=== PATIENT | female | born 1940 | race Caucasian/White ===

== ENCOUNTER 2024-03-13 15:58 | Outpatient (OUT) | payer MEDICARE, SELFPAY | END 2024-03-13 15:59 | disposition home or self-care (01) | LOC: WC 15:59 | PROVIDERS: PCP Physician Assistant; Visit Provider Physician Assistant | DX: L97.918 Non-pressure chronic ulcer of unspecified part of right lower leg with other specified severity (principal) | CPT/HCPCS: G0463 ==

== ENCOUNTER 2024-03-20 13:00 | Outpatient (OUT) | payer MEDICARE, SELFPAY | END 2024-03-20 13:01 | disposition home or self-care (01) | LOC: WC 15:36 | PROVIDERS: PCP Physician Assistant; Visit Provider Physician Assistant | DX: L97.918 Non-pressure chronic ulcer of unspecified part of right lower leg with other specified severity (principal) | CPT/HCPCS: G0463 ==

== ENCOUNTER 2024-03-27 16:04 | Outpatient (OUT) | payer MEDICARE, SELFPAY | END 2024-03-27 16:05 | disposition home or self-care (01) | LOC: WC 16:04 | PROVIDERS: PCP Physician Assistant; Visit Provider Physician Assistant | DX: L97.918 Non-pressure chronic ulcer of unspecified part of right lower leg with other specified severity (principal) | CPT/HCPCS: G0463 ==

== ENCOUNTER 2024-05-04 10:49 | Outpatient (OUT) | payer MEDICARE, SELFPAY ==
--- NOTE | 2024-05-04 | XR_ITS ---
The [address] [address] Patient Name: SERGIO ACOSTA MRN: [id number] date: 1940 Sex: F Assigned Patient Location: Current Patient Location: Accession/Order Number: [id number] Exam Date: 05/04/2024 10:51 Report Date: 05/08/2024 13:21 At the request of: KATHERINE TORRES Procedure: XR foot LT min 3V PROCEDURE: XR foot LT min 3V, XR ankle LT min 3V COMPARISON: None. HISTORY: LEFT FOOT PAIN FINDINGS: BONES:No acute fracture or dislocation of the foot or ankle. Minimal enthesopathic spurring of the calcaneus. Mild degenerative change with marginal osteophyte formation SOFT TISSUES:Negative. No visible soft tissue swelling. EFFUSION:None visible. OTHER: Negative. XR/XR foot LT min 3V IMPRESSION: Mild degenerative changes Electronically authenticated by: KATHRINE PHILIP Date: 05/08/2024 13:21
--- NOTE | 2024-05-04 | XR_ITS ---
The [address] [address] Patient Name: SERGIO ACOSTA MRN: [id number] date: 1940 Sex: F Assigned Patient Location: Current Patient Location: Accession/Order Number: [id number] Exam Date: 05/04/2024 10:51 Report Date: 05/08/2024 13:21 At the request of: KATHERINE TORRES Procedure: XR ankle LT min 3V PROCEDURE: XR foot LT min 3V, XR ankle LT min 3V COMPARISON: None. HISTORY: LEFT FOOT PAIN FINDINGS: BONES:No acute fracture or dislocation of the foot or ankle. Minimal enthesopathic spurring of the calcaneus. Mild degenerative change with marginal osteophyte formation SOFT TISSUES:Negative. No visible soft tissue swelling. EFFUSION:None visible. OTHER: Negative. XR/XR ankle LT min 3V IMPRESSION: Mild degenerative changes Electronically authenticated by: KATHRINE PHILIP Date: 05/08/2024 13:21
--- OUTSIDE RECORDS SUMMARY | 2024-05-04 10:53 | XMS_ITS | CCD ---
Author Organization [facility] Care Team Providers Care Park Superintendent Name Role Phone Roz Stewart Unavailable Unavailable Provider, None Unavailable Unavailable Roz Stewart Unavailable Unavailable IsabelJairon santizo Unavailable Unavail able Isabel, Jairon Sr Unavailable Unavail able Provider, None Unavailable Unavailable Domingo Badillo Unavailable Unavailable Isabel, Jairon Sr Unavailable Unavail able IsabelJairon Unavailable Unavail able Provider, None Unavailable Unavailable Provider, None Unavailable Unavailable Stalter, Jorge Unavailable Unavailable Stalter, Jorge Unavailable Unavailable Agusto Anderson Primary Care Provider Allergies Allergy Classification Reported Allergen(s) Allergy Type Date of Onset Reaction(s) Facility (1 source) No Known Medication Allergies; Translations: [No Known Medication Allergies] Propensity to adverse reactions to drug (disorder) [facility] Repository Medications Completed/Discontinued Medications Medication Drug Class(es) Dates Sig (Normalized) Sig (Original) acetaminophen 325 mg oral capsule (1 source) acetaminophen (TYLENOL) 325 mg cap Take by mouth as needed. 0 Active Comment on above: Take by mouth as nee ded. acetaminophen 325 mg / HYDROcodone bitartrate 5 mg oral tablet (1 source) Opioid Agonist Start: 08-27-2016 take 1 tablet by mouth every six hours as needed HYDROcodone-acetami nophen (NORCO) 5-325 mg per tablet Take 1 tablet by mouth every 6 hours as needed. 30 tablet 0 08/27/2016 Active Comment on above: Take 1 tablet by rpetty th every 6 hours as needed. acetaminophen 325 mg / oxyCODONE hydrochloride 5 mg oral tablet (1 source) Opioid Agonist Start: 08-14-2016 take 1 tablet by mouth every six hours as needed oxyCODONE-acetamino phen (PERCOCET) 5-325 mg tablet Take 1 tablet by mouth every 6 hours as needed for Pain. 15 tablet 0 08/14/2016 Active Comment on above: Take 1 tablet by pretty th every 6 hours as needed for Pain. aspirin 81 mg delayed release oral tablet (1 source) Platelet Aggregation Inhibitor, Nonsteroidal Anti-inflammatory Drug take 1 tablet by mouth once daily aspirin, enteric coated (ASPIRIN LOW DOSE) 81 mg EC tablet Take 81 mg by mouth once daily. 0 Active Comment on above: Take 81 mg by mouth once daily. atropine sulfate 0.025 mg / diphenoxylate hydrochloride 2.5 mg oral tablet (1 source) Anticholinergic, Cholinergic Muscarinic Antagonist, Antidiarrheal Start: 11-24-2016 take 1 tablet by mouth once at bedtime diphenoxylate-atrop ine (LOMOTIL) 2.5-0.025 mg per tablet Take 1 tablet by mouth before meals and at bedtime. 120 tablet 2 11/24/2016 Active Comment on above: Take 1 tablet by pretty th before meals and at bedtime. CALCIUM CITRATE/VITAMIN D3 (CITRACAL + D ORAL) (1 source) CALCIUM CITRATE/VITAMIN D3 (CITRACAL + D ORAL) Take by mouth. 0 Active Comment on above: Take by mouth. cholecalciferol, vitamin D3, (VITAMIN D3 ORAL) (1 source) take 500 mg by mouth once daily cholecalciferol, vitamin D3, (VITAMIN D3 ORAL) Take 500 mg by mouth once daily. 0 Active Comment on above: Take 500 mg by mouth once daily. cholestyramine resin 4000 mg powder for oral suspension (2 sources) Bile Acid Sequestrant Start: 11-24-2016 take 4 g by mouth three times daily cholestyramine (QUESTRAN) 4 gram packet Take by mouth as directed. Three times per day 90 Packet 3 11/24/2016 Active Start: 08-03-2016 take 4 g by mouth once daily c holestyramine (QUESTRAN) 4 gram packet Take by mouth once daily. 30 Packet 3 08/03/2016 Active Comment on above: Take by mouth once d aily. Take by mouth as dir ected. Three times per day ibuprofen 200 mg oral tablet (1 source) Nonsteroidal Anti-inflammatory Drug take 1 tablet by mouth every six hours as needed ibuprofen (MOTRIN) 200 mg tablet Take 200 mg by mouth every 6 hours as needed. 0 Active Comment on above: Take 200 mg by mouth every 6 hours as needed. lactobacillus acidophilus [id number] unt oral capsule (1 source) Lactobacillus acidophilus (PROBIOTIC) 10 billion cell cap Take by mouth. 0 Active Comment on above: Take by mouth. loperamide hydrochloride 2 mg oral tablet (1 source) Opioid Agonist take 1 tablet by mouth once as needed, then take 2-6 tablets by mouth once daily as needed Loperamide HCl (IMODIUM A-D) 2 mg tab Take 2 mg by mouth as needed (2-6 a day). 0 Active Comment on above: Take 2 mg by mouth a s needed (2-6 a day). MULTIVIT-MIN/FA/CALCIUM /VIT K1 (ONE-A-DAY WOMEN'S 50+ ORAL) (1 source) MULTIVIT-MIN/FA/ CALCIU M/VIT K1 (ONE-A-DAY WOMEN'S 50+ ORAL) Take by mouth. 0 Active Comment on above: Take by mouth. 12 hr timolol 5 mg/ml ophthalmic solution (1 source) beta-Adrenergic Saida take 1 drop(s) into the eye(s) once daily timolol hemihydrate (BETIMOL) 0.5 % ophthalmic solution Use 1 Drop in both eyes once daily. 0 Active Comment on above: Use 1 Drop in both e yes once daily. Results Test Name Value Interpretation Reference Range [facility] ([id number]) 1940 F Date Time Provider Department 05/15/22 JOSE RAUL ROBERTO During your visit today, we recorded the following information about you: Chandu Rosen RN 05/15/2022 2:12 PM Signed SPECIALTY CARE COORDINATION FOLLOW-UP NOTE Unable to reach Sergio. Left a voice message to call the office back [phone] or call [phone] to make an appointment with Rema Silvestre NP as an office visit to discuss the sacral nerve stimulator. 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 - acetaminophen (TYLENOL) 325 mg cap Take by mouth as needed. - ibuprofen (MOTRIN) 200 mg tablet Take 200 mg by mouth every 6 hours as needed. - timolol hemihydrate (BETIMOL) 0.5 % ophthalmic solution Use 1 Drop in both eyes once daily. - diphenoxylate-atropine (LOMOTIL) 2.5-0.025 mg per tablet Take 1 tablet by mouth before meals and at bedtime. - cholestyramine (QUESTRAN) 4 gram packet Take by mouth as directed. Three times per day - HYDROcodone-acetaminophen (NORCO) 5-325 mg per tablet Take 1 tablet by mouth every 6 hours as needed. - oxyCODONE-acetaminophen (PERCOCET) 5-325 mg tablet Take 1 tablet by mouth every 6 hours as needed for Pain. - cholestyramine (QUESTRAN) 4 gram packet Take by mouth once daily. - CALCIUM CITRATE/VITAMIN D3 (CITRACAL + D ORAL) Take by mouth. - MULTIVIT-MIN/FA/CALCIUM/VIT K1 (ONE-A-DAY WOMEN'S 50+ ORAL) Take by mouth. - aspirin, enteric coated (ASPIRIN LOW DOSE) 81 mg EC tablet Take 81 mg by mouth once daily. - Lactobacillus acidophilus (PROBIOTIC) 10 billion cell cap Take by mouth. - Loperamide HCl (IMODIUM A-D) 2 mg tab Take 2 mg by mouth as needed (2-6 a day). Meds Comments as of 06/11/2016: Pt states that medication is current. Problem List As Of Date: 05/15/2022 (None) Encounter Status:Closed by CHANDU ROSEN on 05/15/22 [facility] CNOVon 06-19-2021 CNOV Office Visit (CORSMN ) SERGIO ALLEN ([id number]) 1940 F Date Time Provider Department 06/19/21 2:30 PM KETAN OBANDO During your visit today, we recorded the following information about you: Weight Height 66.6 kg 1.803 m Ketan Obando APRN.HEEL CURVER 06/19/2021 3:17 PM Signed [facility]LOOR SNS Follow Up Date of SNS implant: Surgeon: Claudette Dumont MD History of present illness: Sergio Allen is a 81 year old FEMALE with a history of having implantation of an Interstim device for treatment of fecal incontinence. S/p implantation of sacral neuromodulator on 08/27/[address] Dumont Patient states she has been doing well with incontinence management until recently. Starting in Spring 2020 it started to worsen and she is not sure why or what precipitated it. The incontinence occurs infrequently still but she is very mindful to adhere to her bowel regimen. She takes cholestyramine daily. She feels her urge to defecation is lessened and does not have enough warning, worsening her incontinence She feels the stimulation from SNS vaginally and is very uncomfortable. She has some difficulty managing settings independently. She has tried to change the programming but still feels stimulation vaginally and is concerned the lead may be displaced. She states she has fallen in the past few years, unsure if there has been direct trauma to the device. PAST MEDICAL HISTORY Diagnosis Date - Breast cancer (HCC) chemo - Depression - Skin cancer - TIA (transient ischemic attack) PAST SURGICAL HISTORY Procedure Laterality Date - CHOLECYSTECTOMY - PAST SURGICAL HISTORY OF right mastectomy - PAST SURGICAL HISTORY OF spinal surgery - PAST SURGICAL HISTORY OF 1967 rectal wall repair after childbirth - PAST SURGICAL HISTORY OF bunionectomy - PAST SURGICAL HISTORY OF dilation of esophagus - TONSILLECTOMY AND ADENOIDECTOMY HX Current Outpatient Medications Medication Sig Dispense Refill - cholecalciferol, vitamin D3, (VITAMIN D3 ORAL) Take 500 mg by mouth once daily. - acetaminophen (TYLENOL) 325 mg cap Take by mouth as needed. - ibuprofen (MOTRIN) 200 mg tablet Take 200 mg by mouth every 6 hours as needed. - timolol hemihydrate (BETIMOL) 0.5 % ophthalmic solution Use 1 Drop in both eyes once daily. - cholestyramine (QUESTRAN) 4 gram packet Take by mouth as directed. Three times per day 90 Packet 3 - aspirin, enteric coated (ASPIRIN LOW DOSE) 81 mg EC tablet Take 81 mg by mouth once daily. - Lactobacillus acidophilus (PROBIOTIC) 10 billion cell cap Take by mouth. - diphenoxylate-atropine (LOMOTIL) 2.5-0.025 mg per tablet Take 1 tablet by mouth before meals and at bedtime. 120 tablet 2 - HYDROcodone-acetaminophen (NORCO) 5-325 mg per tablet Take 1 tablet by mouth every 6 hours as needed. (Patient not taking: Reported on 06/19/2021) 30 tablet 0 - oxyCODONE-acetaminophen (PERCOCET) 5-325 mg tablet Take 1 tablet by mouth every 6 hours as needed for Pain. (Patient not taking: Reported on 06/19/2021) 15 tablet 0 - cholestyramine (QUESTRAN) 4 gram packet Take by mouth once daily. 30 Packet 3 - CALCIUM CITRATE/VITAMIN D3 (CITRACAL + D ORAL) Take by mouth. (Patient not taking: Reported on 06/19/2021 ) - MULTIVIT-MIN/FA/CALCIUM/VIT K1 (ONE-A-DAY WOMEN'S 50+ ORAL) Take by mouth. (Patient not taking: Reported on 06/19/2021 ) - Loperamide HCl (IMODIUM A-D) 2 mg tab Take 2 mg by mouth as needed (2-6 a day). (Patient not taking: Reported on 06/19/2021 ) No current facility-administered medications for this visit. ALLERGIES No Known Allergies FAMILY HISTORY Problem Relation Age of Onset - other (multiple myeloma [Other]) Sister - other (kidney cancer [Other]) Daughter Social History Tobacco Use - Smoking status: Never Smoker - Smokeless tobacco: Never Used Vaping Use - Vaping Use: Never used Substance Use Topics - Alcohol use: Yes Comment: 3 drinks a night - Drug use: Never Review of Systems: Reviewed, negative other than as stated in HPI. Physical Exam: 06/19/21 1425 Weight: 66.6 kg (146 lb 12.8 oz) Height: 180.3 cm (5' 11 ) General Appearance: Well appearing, alert, in no acute distress, well-hydrated, well nourished. Psych: ORIENTATION: normal to time place, person and situation AFFECT AND MOOD: Normal Skin: Skin color, texture, turgor normal, no suspicious rashes or lesions Extremities: No deformities, edema, skin discoloration, clubbing or cyanosis. Good capillary refill. Musculoskeletal: no weakness, no balance deficits, no coordination deficitsGAIT: Normal ASSIST DEVICE: None Neuro: normal memory Normal mood and affect. SNS Device: battery located right lumbar region, nontender, no erythema Sacral Nerve Stimulation Settings AND Programming: Program Settings Voltage / Sensation 1 0-,3+ felt vaginally, right sided, u (more content not included)... Normal [facility] HISTORY PHYSICALon HISTORY PHYSICAL HNO ID: [id number] Author: Ketan Obando APRN.HEEL CURVER Service: ? Author Type: Nurse Practitioner Type: HANDP Filed: 06/19/2021 3:17 PM Note Text: [facility]LO[facility] SNS Follow Up Date of SNS implant: Surgeon: Claudette Dumont MD History of present illness: Sergio Allen is a 81 year old FEMALE with a history of having implantation of an Interstim device for treatment of fecal incontinence. S/p implantation of sacral neuromodulator on 08/27/[address] Dumont Patient states she has been doing well with incontinence management until recently. Starting in Spring 2020 it started to worsen and she is not sure why or what precipitated it. The incontinence occurs infrequently still but she is very mindful to adhere to her bowel regimen. She takes cholestyramine daily. She feels her urge to defecation is lessened and does not have enough warning, worsening her incontinence She feels the stimulation from SNS vaginally and is very uncomfortable. She has some difficulty managing settings independently. She has tried to change the programming but still feels stimulation vaginally and is concerned the lead may be displaced. She states she has fallen in the past few years, unsure if there has been direct trauma to the device. PAST MEDICAL HISTORY Diagnosis Date - Breast cancer (HCC) chemo - Depression - Skin cancer - TIA (transient ischemic attack) PAST SURGICAL HISTORY Procedure Laterality Date - CHOLECYSTECTOMY - PAST SURGICAL HISTORY OF right mastectomy - PAST SURGICAL HISTORY OF spinal surgery - PAST SURGICAL HISTORY OF 1967 rectal wall repair after childbirth - PAST SURGICAL HISTORY OF bunionectomy - PAST SURGICAL HISTORY OF dilation of esophagus - TONSILLECTOMY AND ADENOIDECTOMY HX Current Outpatient Medications Medication Sig Dispense Refill - cholecalciferol, vitamin D3, (VITAMIN D3 ORAL) Take 500 mg by mouth once daily. - acetaminophen (TYLENOL) 325 mg cap Take by mouth as needed. - ibuprofen (MOTRIN) 200 mg tablet Take 200 mg by mouth every 6 hours as needed. - timolol hemihydrate (BETIMOL) 0.5 % ophthalmic solution Use 1 Drop in both eyes once daily. - cholestyramine (QUESTRAN) 4 gram packet Take by mouth as directed. Three times per day 90 Packet 3 - aspirin, enteric coated (ASPIRIN LOW DOSE) 81 mg EC tablet Take 81 mg by mouth once daily. - Lactobacillus acidophilus (PROBIOTIC) 10 billion cell cap Take by mouth. - diphenoxylate-atropine (LOMOTIL) 2.5-0.025 mg per tablet Take 1 tablet by mouth before meals and at bedtime. 120 tablet 2 - HYDROcodone-acetaminophen (NORCO) 5-325 mg per tablet Take 1 tablet by mouth every 6 hours as needed. (Patient not taking: Reported on 06/19/2021) 30 tablet 0 - oxyCODONE-acetaminophen (PERCOCET) 5-325 mg tablet Take 1 tablet by mouth every 6 hours as needed for Pain. (Patient not taking: Reported on 06/19/2021) 15 tablet 0 - cholestyramine (QUESTRAN) 4 gram packet Take by mouth once daily. 30 Packet 3 - CALCIUM CITRATE/VITAMIN D3 (CITRACAL + D ORAL) Take by mouth. (Patient not taking: Reported on 06/19/2021 ) - MULTIVIT-MIN/FA/CALCIUM/VIT K1 (ONE-A-DAY WOMEN'S 50+ ORAL) Take by mouth. (Patient not taking: Reported on 06/19/2021 ) - Loperamide HCl (IMODIUM A-D) 2 mg tab Take 2 mg by mouth as needed (2-6 a day). (Patient not taking: Reported on 06/19/2021 ) No current facility-administered medications for this visit. ALLERGIES No Known Allergies FAMILY HISTORY Problem Relation Age of Onset - other (multiple myeloma [Other]) Sister - other (kidney cancer [Other]) Daughter Social History Tobacco Use - Smoking status: Never Smoker - Smokeless tobacco: Never Used Vaping Use - Vaping Use: Never used Substance Use Topics - Alcohol use: Yes Comment: 3 drinks a night - Drug use: Never Review of Systems: Reviewed, negative other than as stated in HPI. Physical Exam: 06/19/21 1425 Weight: 66.6 kg (146 lb 12.8 oz) Height: 180.3 cm (5' 11 ) General Appearance: Well appearing, alert, in no acute distress, well-hydrated, well nourished. Psych: ORIENTATION: normal to time place, person and situation AFFECT AND MOOD: Normal Skin: Skin color, texture, turgor normal, no suspicious rashes or lesions Extremities: No deformities, edema, skin discoloration, clubbing or cyanosis. Good capillary refill. Musculoskeletal: no weakness, no balance deficits, no coordination deficitsGAIT: Normal ASSIST DEVICE: None Neuro: normal memory Normal mood and affect. SNS Device: battery located right lumbar region, nontender, no erythema Sacral Nerve Stimulation Settings AND Programming: Program Settings Voltage / Sensation 1 0-,3+ felt vaginally, right sided, uncomfortable at low amplitude 2 1-,3+ 1.5 felt vaginally, uncomfortable even at low amplitude 3 2-,0+ 0.7 felt comfortably in rectum 4 3-,0+ 5 0-,1-,3+ 6 1-,2-,3+ 7 2-,3-,0+ The patient is currently on progra (more content not included)... Normal [facility] History and Physicalon 04-18 History and Physical [id number]-2018 Protein [id number]#1.00[facility] 2017 Intraoperative Note [id number]#1.00[facility] Coding Summaryon 03-25-2018 Coding Summary CODING DATE: 018 [facility] STATUS: Home PAYOR: Medicare APC DESCRIPTION 5023 Level 3 Type A ED Visits ADMIT DX: REASON FOR VISIT DX: G89.18 Other acute postprocedural pain FINAL DX: PRINCIPAL: G89.18 Other acute postprocedural pain SECONDARY: PYMT PROC APC STAT DESCRIPTION DOCTOR NAME DATE NOTE: The code number assigned matches the documented diagnosis and / or procedure in the patient's chart. However, the narrative phrase printed from the coding software may appear abbreviated, or result in slightly different terminology. Coded By: Andres De LaR osa Date Saved: 03/25/2018 04:47 pm [facility] Coding Summary CODING DATE: 018 [facility] STATUS: Home PAYOR: Medicare ADMIT DX: REASON FOR VISIT DX: G89.18 Other acute postprocedural pain FINAL DX: PRINCIPAL: G89.18 Other acute postprocedural pain SECONDARY: PROCEDURES DOCTOR NAME DATE NOTE: The code number assigned matches the documented diagnosis and / or procedure in the patient's chart. However, the narrative phrase printed from the coding software may appear abbreviated, or result in slightly different terminology. Coded By: Andres De La Rosa Date Saved: 03/25/2018 04:47 pm [facility] MAGR Postoperative Recordon 03-22-2018 MAGR Postoperative Record MAGR Phase II Record Summary Primary Physician: Jairon Hall DO Finalized Date/Time: 03/22/18 09:08:52 Pt. Name: SERGIO ALLEN Maryann Kaur./Sex: 1940 FEMALE Med Rec #: [id number] Physician: Jairon Hall DO Financial #: [id number] Pt. Type: D Room/Bed: 220/1 Admit/Disch: 03/18/18 11:41:07 - 03/18/18 18:30:00 Institution: Phase II Case Times MAGR Pre-Care Text: Patient is free from s/s of injury. Patient remains free from compromised physical state related to surgery or anesthesia. Patient comfort maintained. Patient/family verbalize understanding of discharge instructions. Entry 1 In PACU II 03/18/18 16:30:00 Discharge from PACU 03/18/18 18:30:00 II Last Modified By: Sagrario Reyes RN 03/22/18 09:08:45 Post-Care Text: The patient remains free from s/s of injury. Patient's vital signs stable, circulation maintained, return to preop mental and physical status, opsite/dressing intact, minimal or absent nausea and vomiting, tolerates po intake. Patient verbalizes adequate pain control. Patient/family express understanding of discharge instructions. General Comments: care per [address] [place] [address] Finalized By: Sagrario Reyes RN Document Signatures Signed By: Sagrario Reyes RN 03/22/18 09:08 [facility] Consent Formson 03-21-2018 Consent Forms [id number]#[id number] [facility] Progress Note - Nurseon 02-26 Progress Note - Nurse POST OP CALL DONE AND PT C/O ABOVE/SUBJECT. STATES SHE WAS ENC PER ER TO CONTACT DR HALL RE SAME. C/O UNDERSTAND OPIOD CRISIS AND NOTOVER MEDICATING PTS, BUT i WAS IN SEVER PAIN. WHEN ASKED HOW HER PAIN IS TODAY, SHE STATES IM TAKING IBUPROFEN, TRYING NOT TO TAKE PAIN MEDS. STATES SHE IS AWAITING PHONE CALL FROM DR CAMACHO OFFICE TO NOTIFY HIM RE SAT TRIP TO ER. MAGNETIC TAPE TYPEWRITER OPERATOR INFORMED PT IS IN O.R. TODAY HERE, WILLGIVE HIM THE MESSAGE.[Electronically Signed on: 03/21/2018 12:54 EDT] Jeniffer Smith[Verified on: 03/21/2018 12:54 EDT] Jeniffer Smith [facility] ED Clinical Summaryon 2017 ED Clinical Summary [facility] - [facility] [address] [place] [id number] ed Clinical SummaryPERSON INFORMATIONName: SERGIO ALLEN Maryann Age: 78 Years Sex: FEMALEDOB: [birth year] MRN: Acct#:Visit Reason: Rib/trunk pain-swelling; Elbow pain-swelling; POST SURGERY/L ARM PAIN, R KNEE PAIN Arrival: 03/19/18 14:52:00 Discharge: 03/19/18 16:12:00LOS: 000 01:20 Check In: 03/19/18 14:52:00 Checkout:03/19/18 16:12:00Address:[address] [place] [id number]: Provider, NonePROVIDER INFORMATIONProvider Role Assigned UnassignedDEE WILKINS ED PA 03/19/18 14:54:15 03/19/18 14:58:15Jorge Cabrera MD ED Provider 03/19/18 14:54:20Paige Batres DIGITAL PERFORMANCE ANALYST Nurse 03/19/18 15:17:08VITALS INFORMATIONVital Sign Triage LatestTemperature TympanicTemperature Temporal ArteryPulse Rate 86 bpm 86 bpmO2 Sat 99 % 99 %Respiratory Rate 20 br/min 20 br/minBlood Pressure 144 mmHg/96 mmHg 144 mmHg/96 mmHgMEDICAL INFORMATIONMedications Given:Medication Dose RouteHYDROmorphone 1 mg IMketorolac 30 mg IMacetaminophen-oxycodone 1 tab(s) POAllergy Information:No Known Medication AllergiesPHYSICIAN DOCUMENTATIONPatient: SERGIO ALLEN : 78 years Sex: FEMALE : 36Associated Diagnoses: Postoperative pain of extremityAuthor: Jorge Cabrera MDBasic InformationTime seen: Date & time 03/19/18 15:02:00.Left elbow pain, left shoulder pain, right knee pain, left-sided rib painHistory of Present [id number] white female presents to the emergency room complaining of postoperative pain. Patient reports she had open reduction internal fixation of her left elbow yesterday here by Dr. Hall. She reports worsening pain overnight and had initially been taking the Percocet 1 by mouth every 6 hours with minimal relief. She increased the frequency to 1 by mouth every 4 hours and still has considerable pain. Patient reports in the past it has taken a lot of pain medication to control her pain. She called Dr. Lemos, orthopedist relations mgr for Dr. Hall who advised her to come to the emergency room for further evaluation. Patient denies fever or chills, she denies nausea or vomiting. She reports she has trouble sleeping because of the pain. Any movement seems to aggravate the pain. She denies any numbness or tingling in her left hand. She does complain of bruising in her left hand. She is tearful here in the emergency room complaining of extreme pain. Patient also complains of pain in her knee and ribs related to the fall when she fractured her left elbow last week. X-rays of the knee and ribs were negative for any fractures on March 12, 2018Review of SystemsConstitutional symptoms: No fever, no chills.Musculoskeletal symptoms: Muscle pain, Joint pain.Health StatusAllergies:Allergic Reactions (Selected)No Known Medication Allergies.Medications: (Selected)Documented MedicationsDocumentedPercocet 5/325 oral tablet: 1 tab(s), PO, q4hr, PRN: for pain, 0 Refill(s)Probiotic Formula: 1 tab(s), PO, Daily, 0 Refill(s)aspirin 81 mg oral tablet: 81 mg, 1 tab(s), PO, Daily, 30 tab(s), 0 Refill(s)timolol hemihydrate 0.25% ophthalmic solution: 1 drop(s), OPTH, Daily, both eyes, 5 mL, 0 Refill(s).Physical Examination Vital SignsVital Signs03/19/18 14:53 EDT Temperature Oral 36.9 DegC Peripheral Pulse Rate 86 bpm Respiratory Rate 20 br/min Systolic Blood Pressure 144 mmHg HI Diastolic Blood Pressure 96 mmHg HI SpO2 99 % Oxygen Therapy Room air. Per nurse's notes.General: Alert, mild distress.Skin: Warm, dry, pink, Ecchymoses over the dorsum of the patient's left hand.Head: Normocephalic, atraumatic.Eye: Normal conjunctiva.Ears, nose, mouth and throat: Oral mucosa moist.Cardiovascular: Regular rate and rhythm.Respiratory: Respirations are non-labored.Back: Normal range of motion.Musculoskeletal: Patient has full range of motion in her left hand and left wrist. No focal neuromuscular deficits noted, no signs of compartment syndrome., Mild tenderness over the right anterior knee.Neurological: Alert and oriented to person, place, time, and situation, No focal neurological deficit observed, normal sensory observed, normal motor observed, normal speech observed.Psychiatric: Cooperative, appropriate mood & affect.Medical Decision MakingDifferential Diagnosis: Worsening postoperative pain.Rationale: I believe the patient has a high metabolism for pain medications based on her past history. I will give her a shot of Toradol 30 mg intramuscular, 1 mg of hydromorphone intramuscular and one Percocet here in the emergency room and reevaluate her pain..Reexamination/ Reevaluation3:30 PM: Patient's pain markedly improved with intramuscular Toradol, intramuscular Dilaudid and oral Percocet. Patient counseled that she needs to be monitored for respiratory depression since she has increased her dose of Percocet above the recommended daily dose. Patient reports that in the past she has done well with ibuprofen therapy but was advised to discontinue that medication before surgery. Patient is now 24 hours post surgery, I advised her she can restart her ibuprofen and use the Percocet only as needed for breakthrough pain. Patient was counseled that she should call Dr. Hall's office on Wednesday to advise him of this emergency room visitImpression and PlanDiagnosisPostoperative pain of extremity (NNQ43-PT G89.18, Discharge, Medical)PlanCondition: Improved, Stable.Disposition: Discharged: to home.Patient was given the following educational materials: Pain Relief Preoperatively and Postoperatively, Pain Medicine Instructions, Pain Medicine Instructions, Pain Relief Preoperatively and Postoperatively.Follow up with: ; Jairon Hall Within 1 to 2 days.Counseled: Patient, Family, Regarding diagnosis, Regarding diagnostic results, Regarding treatment plan, Regarding prescription, Patient indicated understanding of instructions, Patient and family counseled about use of opiates and the risk for respiratory depression. Patient advised that she should use only the minimal amount of pain medications as necessary to control her pain..DISCHARGE INFORMATION:Discharge Disposition: HomeDischarge Location: HomePATIENT EDUCATION INFORMATIONInstructions: Pain Medicine Instructions; Pain Relief Preoperatively and PostoperativelyFollow-Up:With: Address: When:Jairon Hall [address] [place] [address], [place], [phone] Business (2) Within 1 to 2 daysDIAGNOSIS:Postoperative pain of extremityPatient Understands: Yes - Patient/family/caregiver verbalizes understanding of instructions givenComment: [facility] ED Note - Physician Patient: SERGIO ALLEN : 78 years Sex: FEMALE : [birth year]Associated Diagnoses: Postoperative pain of extremityAuthor: Jorge Cabrera MDBasic InformationTime seen: Date & time 03/19/18 15:02:00.Left elbow pain, left shoulder pain, right knee pain, left-sided rib painHistory of Present [id number] white female presents to the emergency room complaining of postoperative pain. Patient reports she had open reduction internal fixation of her left elbow yesterday here by Dr. Hall. She reports worsening pain overnight and had initially been taking the Percocet 1 by mouth every 6 hours with minimal relief. She increased the frequency to 1 by mouth every 4 hours and still has considerable pain. Patient reports in the past it has taken a lot of pain medication to control her pain. She called Dr. Lemos, orthopedist relations mgr for Dr. Hall who advised her to come to the emergency room for further evaluation. Patient denies fever or chills, she denies nausea or vomiting. She reports she has trouble sleeping because of the pain. Any movement seems to aggravate the pain. She denies any numbness or tingling in her left hand. She does complain of bruising in her left hand. She is tearful here in the emergency room complaining of extreme pain. Patient also complains of pain in her knee and ribs related to the fall when she fractured her left elbow last week. X-rays of the knee and ribs were negative for any fractures on March 12, 2018Review of SystemsConstitutional symptoms: No fever, no chills.Musculoskeletal symptoms: Muscle pain, Joint pain.Health StatusAllergies:Allergic Reactions (Selected)No Known Medication Allergies.Medications: (Selected)Documented MedicationsDocumentedPercocet 5/325 oral tablet: 1 tab(s), PO, q4hr, PRN: for pain, 0 Refill(s)Probiotic Formula: 1 tab(s), PO, Daily, 0 Refill(s)aspirin 81 mg oral tablet: 81 mg, 1 tab(s), PO, Daily, 30 tab(s), 0 Refill(s)timolol hemihydrate 0.25% ophthalmic solution: 1 drop(s), OPTH, Daily, both eyes, 5 mL, 0 Refill(s).Physical Examination Vital SignsVital Signs03/19/18 14:53 EDT Temperature Oral 36.9 DegC Peripheral Pulse Rate 86 bpm Respiratory Rate 20 br/min Systolic Blood Pressure 144 mmHg HI Diastolic Blood Pressure 96 mmHg HI SpO2 99 % Oxygen Therapy Room air. Per nurse's notes.General: Alert, mild distress.Skin: Warm, dry, pink, Ecchymoses over the dorsum of the patient's left hand.Head: Normocephalic, atraumatic.Eye: Normal conjunctiva.Ears, nose, mouth and throat: Oral mucosa moist.Cardiovascular: Regular rate and rhythm.Respiratory: Respirations are non-labored.Back: Normal range of motion.Musculoskeletal: Patient has full range of motion in her left hand and left wrist. No focal neuromuscular deficits noted, no signs of compartment syndrome., Mild tenderness over the right anterior knee.Neurological: Alert and oriented to person, place, time, and situation, No focal neurological deficit observed, normal sensory observed, normal motor observed, normal speech observed.Psychiatric: Cooperative, appropriate mood & affect.Medical Decision MakingDifferential Diagnosis: Worsening postoperative pain.Rationale: I believe the patient has a high metabolism for pain medications based on her past history. I will give her a shot of Toradol 30 mg intramuscular, 1 mg of hydromorphone intramuscular and one Percocet here in the emergency room and reevaluate her pain..Reexamination/ Reevaluation3:30 PM: Patient's pain markedly improved with intramuscular Toradol, intramuscular Dilaudid and oral Percocet. Patient counseled that she needs to be monitored for respiratory depression since she has increased her dose of Percocet above the recommended daily dose. Patient reports that in the past she has done well with ibuprofen therapy but was advised to discontinue that medication before surgery. Patient is now 24 hours post surgery, I advised her she can restart her ibuprofen and use the Percocet only as needed for breakthrough pain. Patient was counseled that she should call Dr. Hall's office on Wednesday to advise him of this emergency room visitImpression and PlanDiagnosisPostoperative pain of extremity (EOD16-RC G89.18, Discharge, Medical)PlanCondition: Improved, Stable.Disposition: Discharged: to home.Patient was given the following educational materials: Pain Relief Preoperatively and Postoperatively, Pain Medicine Instructions, Pain Medicine Instructions, Pain Relief Preoperatively and Postoperatively.Follow up with: ; Jairon Hall Within 1 to 2 days.Counseled: Patient, Family, Regarding diagnosis, Regarding diagnostic results, Regarding treatment plan, Regarding prescription, Patient indicated understanding of instructions, Patient and family counseled about use of opiates and the risk for respiratory depression. Patient advised that she should use only the minimal amount of pain medications as necessary to control her pain..[Electronically Signed on: 03/19/2018 15:52 EDT] Jorge Cabrera MD[Verified on: 03/19/2018 15:52 EDT] Jorge Cabrera MD [facility] ED Note-Nursingon 03-19-2018 aPTT Pt taken to room 2 v ia wheelchair. did surgery on the pt on 03/18/18. Pt states that she has uncontrolled pain in the left wrist to left elbow and left shoulder and rib pain. Pt states that she called and talked Dr. Lemos who advised that she should come to the ER to be evaluated. [facility] ED Patient Education Noteon 03-19-2018 ED Patient Education Note Education MaterialsNeurologyPain Relief Preoperatively and PostoperativelyEveryone experiences pain differently, and you have the right to have your pain evaluated and managed. If you have questions, problems, or concerns about pain that you may feel before surgery (preoperatively) or after surgery (postoperatively), tell your health care provider. Severe pain after surgery?and the fear or worry associated with that pain?may cause extreme discomfort that:? Prevents sleep.? Decreases the ability to breathe deeply and to cough. This can result in pneumonia or upper airway infections.? Causes the heart to beat more quickly and the blood pressure to be higher.? Increases the risk for constipation and bloating.? Interferes with wound healing.? May result in depression, increased worry, and feelings of helplessness.Relieving pain before surgery is also important because it lessens the pain that you will have after surgery. Patients who receive pain relief both before and after surgery experience greater pain relief than patients who receive pain relief only after surgery.If you have pain that is not controlled by medicine, tell your health care provider. This?is very important. If you become constipated after taking pain medicine, drink more fluids or take a laxative as told by your health care provider.Pain control methodsYour health care provider follows guidelines about the management of your pain. These guidelines should be explained to you before your procedure. Work with your health care provider to plan for your postoperative pain relief. Make sure that you fully understand and agree with this plan. You should nothesitate to ask questions about the care that you are receiving.Your health care provider may use more than one method at the same time to help relieve your pain (multimodal analgesia). Using this approach has many benefits for you, which may include being able to eat, move around, and possibly leave the hospital sooner.Opioids? Opioids are substances that relieve pain by binding to pain receptors in the brain and spinal cord (narcotic pain medicines). Opioids may help to relieve short-term (acute) postoperative pain that is moderate to moderately severe.? Opioids are often combined with non-narcotic medicines to improve pain relief, lower the risk of side effects, and reduce the chance of addiction.? To help prevent addiction, opioids are given for short periods of time in careful doses.?If you follow instructions from your health care provider about taking opioids and you do not have a history of substance abuse, your risk of becoming addicted to opioids is low.As-Needed Pain Control ? You can receive pain medicine when you need it through an IV tube inserted into one of your veins, or through other forms such as a pill or liquid that you can swallow. When you tell your health care provider that you are having pain, he or she will give you the proper pain medicine.IV Patient-Controlled Analgesia (SENIOR REACTOR OPERATOR) Pump? You can receive pain medicine through an IV tube that is connected to a SENIOR REACTOR OPERATOR pump. The SENIOR REACTOR OPERATOR pump gives you a specific amount of medicine when you push a button. This lets you control how much medicine you receive. The pump is set up so that you cannot accidentally give yourself too much medicine.? This button should be pushed only by you or by someone who is specifically assigned by you to do so.? You will be able to start using your SENIOR REACTOR OPERATOR pump in the recovery room after your procedure.? Tell your health care provider:? If you are having too much pain.? If you are feeling too sleepy or nauseous.Continuous Epidural Pain Control? You can receive pain medicine through a thin, flexible tube (catheter) that is inserted into your back, near your spinal cord. Medicine flows through the catheter to reduce pain in areas of your body that are below the catheter.? This method may be recommended if you are having surgery on your abdomen, hip area, or legs.? The catheter is usually put into the back shortly before surgery. It may be left in until you can eat, take medicine by mouth, pass urine, and have a bowel movement.? This method of pain relief may help you to heal more quickly because you may be able to do these things sooner:? Regain normal bowel and bladder function.? Return to eating.? Get up and walk.Medicine That Numbs the Area (Local Anesthetic)You may be given pain medicine:? As an injection near your painful area (local infiltration).? As an injection near the nerve that provides feeling to a specific part of your body (peripheral nerve block).? As an injection in your spine (spinal block).? Through a local anesthetic reservoir pump. This means that one or more catheters are inserted into your incision at the end of your procedure. These catheters are connected to a device that is filled with a non-narcotic pain medicine. Medicine gradually empties into your incision site over the next several days.Other Methods of Pain Control? Steroids.? Physical therapy.? Heat and cold therapy.? Applying pressure (compression) to the painful area, such as wrapping an elastic bandage around the area.? Massage.This information is not intended to replace advice given to you by your health care provider. Make sure you discuss any questions you have with your health care provider.Document Released: 12/04/2003 Document Revised: 02/15/2017 Document Reviewed: 05/27/2016[employer] Patient Education ? 2018 [employer]PharmacologyPain Medicine InstructionsHow can pain medicine affect me?You were given a prescription for pain medicine. This medicine may make you tired or drowsy and may affect your ability to think clearly. Pain medicine may also affect your ability to drive or perform certain physical activities. It may not be possible to make all of your pain go away, but you should be comfortable enough to move, breathe, and take care of yourself. How often should I take pain medicine and how much should I take?? Take pain medicine only as directed by your health care provider and only as needed for pain.? You do not need to take pain medicine if you are not having pain, unless directed by your health care provider.? You can take less than the prescribed dose if you find that a smaller amount of medicine controls your pain.What restrictions do I have while taking pain medicine?Follow these instructions after you start taking pain medicine, while you are taking the medicine, and for 8 hours after you stop taking the medicine:? Do not drive.? Do not operate machinery.? Do not operate power tools.? Do not sign legal documents.? Do not drink alcohol.? Do not take sleeping pills.? Do not supervise children by yourself.? Do not participate in activities that require climbing or being in high places.? Do not enter a body of water?such as a del toro, river, ocean, spa, or swimming pool?without an adult nearby who can monitor and help you.How can I keep others safe while I am taking pain medicine?? Store your pain medicine as directed by your health care provider. Make sure that it is placed where children and pets cannot reach it.? Never share your pain medicine with anyone.? Do not save any leftover pills. If you have any leftover pain medicine, get rid of it or destroy it as directed by your health care provider.What else do I need to know about taking pain medicine?? Use a stool softener if you become constipated from your pain medicine. Increasing your intake of fruits and vegetables will also help with constipation.? Write down the times when you take your pain medicine. Look at the times before you take your next dose of medicine. It is easy to become confused while on pain medicine. Recording the times helps you to avoid an overdose.? If your pain is severe, do not try to treat it yourself by taking more pills than instructed on your prescription. Contact your health care provider for help.? You may have been prescribed a pain medicine that contains acetaminophen. Do not take any other acetaminophen while taking this medicine. An overdose of acetaminophen can result in severe liver damage. Acetaminophen is found in many cjot-yby-xrquzyh (OTC) and prescription medicines. If you are taking any medicines in addition to your pain medicine, check the active ingredients on those medicines to see if acetaminophen is listed.When should I call my health care provider?? Your medicine is not helping to make the pain go away.? You vomit or have diarrhea shortly after taking the medicine.? You develop new pain in areas that did not hurt before.? You have an allergic reaction to your medicine. This may include:? Itchiness.? Swelling.? Dizziness.? Developing a new rash.When should I call 911 or go to the emergency room?? You feel dizzy or you faint.? You are very confused or disoriented.? You repeatedly vomit.? Your skin or lips turn pale or bluish in color.? You have shortness of breath or you are breathing much more slowly than usual.? You have a severe allergic reaction to your medicine. This includes:? Developing tongue swelling.? Having difficulty breathing.This information is not intended to replace advice given to you by your health care provider. Make sure you discuss any questions you have with your health care provider.Document Released: 12/20/2001 Document Revised: 04/02/2017 Document Reviewed: 07/18/2015[employer] Interactive Patient Education ? 2018 [employer] Normal [facility] ED Patient Summaryon 018 ED Patient Summary [facility] - Emergency [address] [place], [place] [id number] pATIENT DISCHARGE INSTRUCTIONSPatient InformationName: SERGIO ALLEN Age: 78 YearsDate of : [birth year]MRN: [id number] For Visit: Rib/trunk pain-swelling; Elbow pain-swelling; POST SURGERY/L ARM PAIN, R KNEE PAINArrival Time: 03/19/18 14:52:00Phone: Primary Care Physician: Provider, NoneAttending Physician: Jorge Cabrera MDComment:Visit Diagnosis:Diagnoses This Visit Elbow pain-swelling ([id number]) Postoperative pain of extremity (G89.18) Rib/trunk pain-swelling ([id number])If you received any narcotics, sedation, or any other medication that causes drowsiness for the next 24 hours, unless otherwise directed:? Do not drive a car.? Do not operate machinery such as power tools, lawn mowers, drills, sewing machines, or stoves? Avoid alcoholic beverages and drugs for allergies, nerves, or sleep? Do not make important personal or business decisions or sign any legal documentsWith: Address: When:Jairon Mortensen[address], [address] [place], [phone] Business (2) Within 1 to 2 daysMedication Information:The exam and treatment you received today in the [facility] Emergency Department were for an urgent problem and are not intended as complete care. It is important for you to follow up with a doctor, nurse practitioner, or physician?s public health training assistant for ongoing care. If your symptoms become worse or you do not improve as expected and you are unable to reach your usual health care provider, you should return to the Emergency Department, we are available 24 hours a day.For those patients who have received Radiology results, the interpretation of your X-ray as given to you by our Emergency Department physician is only a preliminary report. The Radiologist will review your films and if there is a change in the diagnosis you will be notified by phone. Please make sure you have provided a working phone number so we can reach you if necessary.In the event that you had a lab culture while you were a patient in the Emergency Department, you will be notified by phone if there is a need to change your antibiotic. Please make sure you have provided a working phone number so we can reach you if necessary.[facility] Emergency Department has provided you with a complete list of medications post discharge. Please inform your primary special educator/provider of your visit and for further instruction on these medications. Any specific questions regarding your chronic medications and dosages should be discussed with your primary care physician(s) and/or pharmacist. Medications to Continue That Have Not ChangedOther Medicationsacetaminophen-oxycod one (Percocet 5/325 oral tablet) 1 tab(s) Oral Every 4 hours as needed for pain.aspirin (aspirin 81 mg oral tablet) 1 tab(s) Oral every day.bifidobacterium-lactobacill us (Probiotic Formula) 1 tab(s) Oral every day.cholestyramine (cholestyramine 4 g/5 g oral powder for reconstitution) Oral 3 times a day.citalopram (citalopram 20 mg oral tablet) 1 tab(s) Oral every day.ibuprofen (ibuprofen 600 mg oral tablet) 1 tab(s) Oral Every 8 hours for 14 Days. Refills: 0.timolol ophthalmic (timolol hemihydrate 0.25% ophthalmic solution) 1 Drops Ophthalmic every day. both eyes.zolpidem (zolpidem 10 mg oral tablet) 1 tab(s) Oral once a day (at bedtime).Visit InformationAllergies:Substance Reaction Symptoms Type CommentsNo Known Medication Allergies DrugVital Signs: Vitals and Measurements this Visit (last charted value for your 03/19/2018 visit) Vital Signs This Visit Temperature Oral: 36.9 DegC Peripheral Pulse Rate: 86 bpm Respiratory Rate: 20 br/min Systolic Blood Pressure: 144 mmHg Diastolic Blood Pressure: 96 mmHg SpO2: 99 % Oxygen Therapy: Room air Measurements This Visit Height/Length Dosin.340 cm Height/Length Estimated: 180.340 cm Weight Dosin.200 kg Weight Estimated: 70.200 kgProblems List:Problem Onset CommentsIBS (irritable bowel syndrome)Patient EducationPain Medicine InstructionsHow can pain medicine affect me?You were given a prescription for pain medicine. This medicine may make you tired or drowsy and may affect your ability to think clearly. Pain medicine may also affect your ability to drive or perform certain physical activities. It may not be possible to make all of your pain go away, but you should be comfortable enough to move, breathe, and take care of yourself. How often should I take pain medicine and how much should I take?? Take pain medicine only as directed by your health care provider and only as needed for pain.? You do not need to take pain medicine if you are not having pain, unless directed by your health care provider.? You can take less than the prescribed dose if you find that a smaller amount of medicine controls your pain.What restrictions do I have while taking pain medicine?Follow these instructions after you start taking pain medicine, while you are taking the medicine, and for 8 hours after you stop taking the medicine:? Do not drive.? Do not operate machinery.? Do not operate power tools.? Do not sign legal documents.? Do not drink alcohol.? Do not take sleeping pills.? Do not supervise children by yourself.? Do not participate in activities that require climbing or being in high places.? Do not enter a body of water?such as a del toro, river, ocean, spa, or swimming pool?without an adult nearby who can monitor and help you.How can I keep others safe while I am taking pain medicine?? Store your pain medicine as directed by your health care provider. Make sure that it is placed where children and pets cannot reach it.? Never share your pain medicine with anyone.? Do not save any leftover pills. If you have any leftover pain medicine, get rid of it or destroy it as directed by your health care provider.What else do I need to know about taking pain medicine?? Use a stool softener if you become constipated from your pain medicine. Increasing your intake of fruits and vegetables will also help with constipation.? Write down the times when you take your pain medicine. Look at the times before you take your next dose of medicine. It is easy to become confused while on pain medicine. Recording the times helps you to avoid an overdose.? If your pain is severe, do not try to treat it yourself by taking more pills than instructed on your prescription. Contact your health care provider for help.? You may have been prescribed a pain medicine that contains acetaminophen. Do not take any other acetaminophen while taking this medicine. An overdose of acetaminophen can result in severe liver damage. Acetaminophen is found in many djuz-orq-htgmsrw (OTC) and prescription medicines. If you are taking any medicines in addition to your pain medicine, check the active ingredients on those medicines to see if acetaminophen is listed.When should I call my health care provider?? Your medicine is not helping to make the pain go away.? You vomit or have diarrhea shortly after taking the medicine.? You develop new pain in areas that did not hurt before.? You have an allergic reaction to your medicine. This may include:? Itchiness.? Swelling.? Dizziness.? Developing a new rash.When should I call 911 or go to the emergency room?? You feel dizzy or you faint.? You are very confused or disoriented.? You repeatedly vomit.? Your skin or lips turn pale or bluish in color.? You have shortness of breath or you are breathing much more slowly than usual.? You have a severe allergic reaction to your medicine. This includes:? Developing tongue swelling.? Having difficulty breathing.This information is not intended to replace advice given to you by your health care provider. Make sure you discuss any questions you have with your health care provider.Document Released: 12/20/2001 Document Revised: 04/02/2017 Document Reviewed: 07/18/2015Bhavesh Interactive Patient Education ? 2018 [employer].Pain Relief Preoperatively and PostoperativelyEveryone experiences pain differently, and you have the right to have your pain evaluated and managed. If you have questions, problems, or concerns about pain that you may feel before surgery (preoperatively) or after surgery (postoperatively), tell your health care provider. Severe pain after surgery?and the fear or worry associated with that pain?may cause extreme discomfort that:? Prevents sleep.? Decreases the ability to breathe deeply and to cough. This can result in pneumonia or upper airway infections.? Causes the heart to beat more quickly and the blood pressure to be higher.? Increases the risk for constipation and bloating.? Interferes with wound healing.? May result in depression, increased worry, and feelings of helplessness.Relieving pain before surgery is also important because it lessens the pain that you will have after surgery. Patients who receive pain relief both before and after surgery experience greater pain relief than patients who receive pain relief only after surgery.If you have pain that is not controlled by medicine, tell your health care provider. This?is very important. If you become constipated after taking pain medicine, drink more fluids or take a laxative as told by your health care provider.Pain control methodsYour health care provider follows guidelines about the management of your pain. These guidelines should be explained to you before your procedure. Work with your health care provider to plan for your postoperative pain relief. Make sure that you fully understand and agree with this plan. You should nothesitate to ask questions about the care that you are receiving.Your health care provider may use more than one method at the same time to help relieve your pain (multimodal analgesia). Using this approach has many benefits for you, which may include being able to eat, move around, and possibly leave the hospital sooner.Opioids? Opioids are substances that relieve pain by binding to pain receptors in the brain and spinal cord (narcotic pain medicines). Opioids may help to relieve short-term (acute) postoperative pain that is moderate to moderately severe.? Opioids are often combined with non-narcotic medicines to improve pain relief, lower the risk of side effects, and reduce the chance of addiction.? To help prevent addiction, opioids are given for short periods of time in careful doses.?If you follow instructions from your health care provider about taking opioids and you do not have a history of substance abuse, your risk of becoming addicted to opioids is low.As-Needed Pain Control ? You can receive pain medicine when you need it through an IV tube inserted into one of your veins, or through other forms such as a pill or liquid that you can swallow. When you tell your health care provider that you are having pain, he or she will give you the proper pain medicine.IV Patient-Controlled Analgesia (SENIOR REACTOR OPERATOR) Pump? You can receive pain medicine through an IV tube that is connected to a SENIOR REACTOR OPERATOR pump. The SENIOR REACTOR OPERATOR pump gives you a specific amount of medicine when you push a button. This lets you control how much medicine you receive. The pump is set up so that you cannot accidentally give yourself too much medicine.? This button should be pushed only by you or by someone who is specifically assigned by you to do so.? You will be able to start using your SENIOR REACTOR OPERATOR pump in the recovery room after your procedure.? Tell your health care provider:? If you are having too much pain.? If you are feeling too sleepy or nauseous.Continuous Epidural Pain Control? You can receive pain medicine through a thin, flexible tube (catheter) that is inserted into your back, near your spinal cord. Medicine flows through the catheter to reduce pain in areas of your body that are below the catheter.? This method may be recommended if you are having surgery on your abdomen, hip area, or legs.? The catheter is usually put into the back shortly before surgery. It may be left in until you can eat, take medicine by mouth, pass urine, and have a bowel movement.? This method of pain relief may help you to heal more quickly because you may be able to do these things sooner:? Regain normal bowel and bladder function.? Return to eating.? Get up and walk.Medicine That Numbs the Area (Local Anesthetic)You may be given pain medicine:? As an injection near your painful area (local infiltration).? As an injection near the nerve that provides feeling to a specific part of your body (peripheral nerve block).? As an injection in your spine (spinal block).? Through a local anesthetic reservoir pump. This means that one or more catheters are inserted into your incision at the end of your procedure. These catheters are connected to a device that is filled with a non-narcotic pain medicine. Medicine gradually empties into your incision site over the next several days.Other Methods of Pain Control? Steroids.? Physical therapy.? Heat and cold therapy.? Applying pressure (compression) to the painful area, such as wrapping an elastic bandage around the area.? Massage.This information is not intended to replace advice given to you by your health care provider. Make sure you discuss any questions you have with your health care provider.Document Released: 12/04/2003 Document Revised: 02/15/2017 Document Reviewed: 05/27/2016Bhavesh Interactive Patient Education ? 2018 [employer]. Viruses or BacteriaWhat?s got you sick?Antibiotics only treat bacterial infections. Viral illnesses cannot be treated with antibiotics. When an antibiotic is not prescribed, ask your healthcare professional for tips on how to relieve symptoms and feel better. Usual CauseIllnessVirusesBacteria Antibiotic NeededCold/Runny Nose NOBronchitis/Chest Cold (in otherwise healthy children and adults) NOWhooping Cough YesFlu NOStrep Throat YesSore Throat (except strep) NOFluid in the middle ear (otitis media with effusion) NOUrinary Tract Infection YesAntibiotics Aren?t Always the Answerwww.cdc.gov/getsmart GET SMART Know When Antibiotics [place] Department of Health and Human ServicesCenters for Disease Control and Prevention May 2014 [facility] Anesthesia Noteon 03-18-2018 Anesthesia Note Patient: Alfreda ALLEN : 78 years Sex: FEMALE : [birth year]Associated Diagnoses: NoneAuthor: Domingo Badillo DOPostoperative InformationPost Operative Note: Post Anesthesia Care Unit.Review / ManagementCondition: Stable.AssessmentAnesthetic outcomeNo anesthetic complications noted.PlanTransfer/ Discharge: Patient can be discharged from PACU when criteria met.Condition good.[Electronically Signed on: 03/18/2018 15:26 EDT] Domingo Badillo DO[Verified on: 03/18/2018 15:26 EDT] Domingo Badillo DO [facility] Anesthesia Note Patient: Alfreda ALLEN : 78 years Sex: FEMALE : [birth year]Associated Diagnoses: NoneAuthor: Domingo Badillo DOPreoperative InformationAnesthesia history: Patient history: No difficult intubation, No malignant hyperthermia. Family history: No malignant hyperthermia, No prior anesthesia problems.Review of SystemsConstitutionalEyeEar/Nos e/Mouth/ThroatRespiratory: No shortness of breath, No cough.Cardiovascular: No chest pain.Gastrointestinal: No heartburn.Neurologic: Alert and oriented X4.Health StatusAllergies:Allergic Reactions (All)No Known Medication AllergiesCurrent medications:Home Medications (5) Activeaspirin 81 mg oral tablet 81 mg = 1 tab(s), PO, Dailyibuprofen 600 mg oral tablet 600 mg = 1 tab(s), PO, a9gwOuvmnzwe 5/325 oral tablet 1 tab(s), PRN, PO, t0sySnihwmlnf Formula 1 tab(s), PO, Dailytimolol hemihydrate 0.25% ophthalmic solution 1 drop(s), OPTH, DailyProblem list (past medical history):All ProblemsIBS (irritable bowel syndrome) / SNOMED CT 59683331 / ConfirmedHistoriesFamily History:No family history items have been selected or recorded.Procedure history:Cholecystectomy (40409767).Mastectomy of right breast (2982966299).Laminectomy (7533215877).Comments:03/15/2018 13:06 - Renee Gonzalez RN5-6Tonsillectomy and adenoidectomy (789825544).Colonoscopy (223756423).Social History Alcohol Assessment Use: Current. Liquor, Daily Tobacco Assessment Never (less than 100 in lifetime) Tobacco Use:..Social & Psychosocial IcbkgqCeuqdfg67/19/2018 Alcohol Use: Current Type: Liquor Frequency: YapqgJbnidqy95/19/2018 Smoking tobacco use: Never (less than 100 in l.Physical ExaminationVS/MeasurementsVital Signs (last 24 hrs) Last ChartedHeart Rate Peripheral 77 bpm (MAR 18:30)Resp Rate 18 br/min (MAR 18:)SBP 132 mmHg (MAR 18:)DBP 78 mmHg (MAR 18:)SpO2 100 % (MAR 18:)General: Alert and oriented, No acute distress.Airway: Mallampati classification: II (soft palate, fauces, uvula visible). Temporomandibular joint mobility: Good. Mouth: Teeth ( [place], Missing ). Neck: Non-tender, Full range of motion.Respiratory: Lungs are clear to auscultation.Cardiovascular: Normal rate, Regular rhythm.Neurologic: Alert, Oriented.Review / ManagementLaboratory ResultsPlanAmerican Society of Anesthesiologists#(ASA) physical status classification: Class III.Anesthetic Preoperative PlanAnesthesia: General.. Anesthetic plan, risks, benefits, and alternatives discussed with the patient and/or family. Risks discussed: nausea, vomiting, sore throat, serious complications. Patient verbalized understanding. Family/Guardian present. Informed consent was given. Consent was signed by the patient.[Electronically Signed on: 03/18/2018 13:41 EDT] Domingo Badillo DO[Verified on: 03/18/2018 13:41 EDT] Domingo Badillo DO [facility] Coding Summaryon 03-18-2018 Coding Summary CODING DATE: 018 FINAL [facility] STATUS: Home PAYOR: Medicare APC DESCRIPTION 5733 Level 3 Minor Procedures ADMIT DX: REASON FOR VISIT DX: Z01.818 Encounter for other preprocedural examination FINAL DX: PRINCIPAL: Z01.818 Encounter for other preprocedural examination SECONDARY: I45.10 Unspecified right bundle-branch block PYMT PROC APC STAT DESCRIPTION DOCTOR NAME DATE NOTE: The code number assigned matches the documented diagnosis and / or procedure in the patient's chart. However, the narrative phrase printed from the coding software may appear abbreviated, or result in slightly different terminology. Coded By: Su Fishman Date Saved: 03/18/2018 08:14 am Normal [facility] Education Noteon 03-18-2018 Education Note Education MaterialsOrthopedicsUlnar FractureAn ulnar fracture is a break in the ulna bone, which is the forearm bone that is located on the same side as your little finger. Your forearm is the part of your arm that is between your elbow and your wrist. It is made up of two bones: the radius and ulna. The ulna forms the point of your elbow at its upper end. The lower end can be felt on the outside of your wrist. An ulnar fracture can happen near the wrist or elbow or in the middle of your forearm. Middle forearm fractures usually break both the radius and the ulna.What are the causes?A heavy, direct blow to the forearm is the most common cause of an ulnar fracture. It takes a lot of force to break a bone in your forearm. This type of injury may be caused by:? An accident, such as a car or bike accident.? Falling with your arm outstretched.What increases the risk?You may be at greater risk for an ulnar fracture if you:? Play contact sports.? Have a condition that causes your bones to be weak or thin (osteoporosis).What are the signs or symptoms?An ulnar fracture causes pain immediately after the injury. You may need to support your forearm with your other hand. Other signs and symptoms include:? An abnormal bend or bump in your arm (deformity).? Swelling.? Bruising.? Numbness or weakness in your hand.? Inability to turn your hand from side to side (rotate).How is this diagnosed?Your health care provider may diagnose an ulnar fracture based on:? Your symptoms.? Your medical history, including any recent injury.? A physical exam. Your health care provider will look for any deformity and feel for tenderness over the break. Your health care provider will also check whether the bone is out of place.? An X-ray exam to confirm the diagnosis and learn more about the type of fracture.How is this treated?The goals of treatment are to get the bone in proper position for healing and to keep it from moving so it will heal over time. Your treatment will depend on many factors, especially the type of fracture that you have.? If the fractured bone:? Is in the correct position (nondisplaced), you may only need to wear a cast or a splint.? Has a slightly displaced fracture, you may need to have the bones moved back into place manually (closed reduction) before the splint or cast is put on.? You may have a temporary splint before you have a plaster cast. The splint allows room for some swelling. After a few days, a cast can replace the splint.? You may have to wear the cast for about 6 weeks or as directed by your health care provider.? The cast may be changed after about 3 weeks or as directed by your health care provider.? After your cast is taken off, you may need physical therapy to regain full movement in your wrist or elbow.? You may need emergency surgery if you have:? A fractured bone that is out of position (displaced).? A fracture with multiple fragments (comminuted fracture).? A fracture that breaks the skin (open fracture). This type of fracture may require surgical wires, plates, or screws to hold the bone in place.? You may have X-rays every couple of weeks to check on your healing.Follow these instructions at home:If you have a cast:? Do not stick anything inside the cast to scratch your skin. Doing that increases your risk of infection.? Do not put pressure on any part of the cast until it is fully hardened. This may take several hours.? Check the skin around the cast every day. Report any concerns to your health care provider. You may put lotion on dry skin around the edges of the cast. Do not apply lotion to the skin underneath the cast.? Do not let your cast get wet if it is not waterproof.? Keep the cast clean.If you have a splint:? Wear it as told by your health care provider. Remove it only as told by your health care provider.? Do not put pressure on any part of the splint until it is fully hardened. This may take several hours.? Loosen the splint if your fingers become numb and tingle, or if they turn cold and blue.? Do not let your splint get wet if it is not waterproof.? Keep the splint clean.Bathing? Do not take baths, swim, or use a hot tub until your health care provider approves. Ask your health care provider if you can take showers. You may only be allowed to take sponge baths for bathing.? If your splint is not waterproof, protect it with a watertight covering when you take a bath or a shower.Managing pain, stiffness, and swelling? If directed, apply ice to the injured area:? Put ice in a plastic bag.? Place a towel between your skin and the bag.? Leave the ice on for 20 minutes, 2?3 times a day.? Move your fingers often to avoid stiffness and to lessen swelling.? Raise the injured area above the level of your heart while you are sitting or lying down.Driving? Do not drive or operate heavy machinery while taking pain medicine.? Do not drive while wearing a cast or splint on a hand that you use for driving.Activity? Return to your normal activities as directed by your health care provider. Ask your health care provider what activities are safe for you.? Do exercises as told by your health care provider.General instructions? Do not use your injured limb to support your body weight until your health care provider says that you can.? Do not use any tobacco products, including cigarettes, chewing tobacco, or electronic cigarettes. Tobacco can delay bone healing. If you need help quitting, ask your health care provider.? Take qbaw-mbn-dnokyty and prescription medicines only as told by your health care provider.? Keep all follow-up visits as told by your health care provider. This is important.Contact a health care provider if:? Your pain medicine is not helping.? Your cast gets damaged or it breaks.? Your cast becomes loose.? Your cast gets wet.? You have more severe pain or swelling than you did before the cast.? You have severe pain when stretching your fingers.? You continue to have pain or stiffness in your elbow or your wrist after your cast is taken off.Get help right away if:? You cannot move your fingers.? You lose feeling in your fingers or your hand.? Your hand or your fingers turn cold and pale or blue.? You notice a bad smell coming from your cast.? You have drainage from underneath your cast.? You have new stains from blood or drainage seeping through your cast.This information is not intended to replace advice given to you by your health care provider. Make sure you discuss any questions you have with your health care provider.Document Released: 02/24/2007 Document Revised: 08/11/2017 Document Reviewed: 02/20/2015Johnevjimmy Interactive Patient Education ? 2017 [employer]. Normal [facility] Inpatient Clinical Summaryon 03-18-2018 Inpatient Clinical Summary [facility] 2SOUTHClinical Discharge SummaryPERSON INFORMATIONName SERGIO ALLEN Age 78 Years 38Sex FEMALE Language Pakistani PCP Provider, NoneMarital Status [facility] Acct# Arrival 03/18/18 11:41:07Visit Reason Right ulnar fracture Acuity LOSAddress:[address] [place] [id number]:PROVIDER INFORMATIONVITALS INFORMATIONVital Sign Triage LatestTemp OralTemp TemporalTemp IntravascularTemp AxillaryTemp Fswvkr03 Sat 96 % 88 %Respiratory Rate 18 br/min 9 br/minPeripheral Pulse Rate 75 bpm 85 bpmApical Heart RateBlood Pressure 129 mmHg / 75 mmHg 128 mmHg / 74 mmHgComment:MEDICAL INFORMATIONAllergy Info:Allergies No Known Medication AllergiesPrescriptions Given:Home Meds Displayacetaminophen-oxycodone (Percocet 5/325 oral tablet) 1 tab(s), PO, q4hr, PRN: for pain, 0 Refill(s)aspirin (aspirin 81 mg oral tablet) 1 tab(s) ( 81 mg ), PO, Daily, # 30 tab(s), 0 Refill(s)bifidobacterium-lactob acillus (Probiotic Formula) 1 tab(s), PO, Daily, 0 Refill(s)Medication List:Continue These Medications:acetaminophen-oxyco done (Percocet 5/325 oral tablet) 1 tab(s) Oral Every 4 hours as needed for for painaspirin (aspirin 81 mg oral tablet) 81 mg Oral every daybifidobacterium-lactobacillu s (Probiotic Formula) 1 tab(s) Oral every dayibuprofen (ibuprofen 600 mg oral tablet) 600 mg Oral Every 8 hours 14 day(s)timolol ophthalmic (timolol hemihydrate 0.25% ophthalmic solution) 1 drop(s) Ophthalmic every day both eyesacetaminophen-oxycodone (Percocet 5/325 oral tablet) 1 tab(s) Oral Every 4 hours as needed for pain.aspirin (aspirin 81 mg oral tablet) 1 tab(s) Oral every day.bifidobacterium-lactobacill us (Probiotic Formula) 1 tab(s) Oral every day.ibuprofen (ibuprofen 600 mg oral tablet) 1 tab(s) Oral Every 8 hours for 14 Days. Refills: 0.timolol ophthalmic (timolol hemihydrate 0.25% ophthalmic solution) 1 Drops Ophthalmic every day. both eyes.Comment:Lab and Radiology ResultsLaboratory or Other Results This Visit (last charted value for your 03/18/2018 visit) Diagnostic Radiology 03/18/2018 3:29 PM XR Elbow 2 Views Left: XR Elbow 2 Views Left XR Fluoroscopy Up to 1 Hour: XR Fluoroscopy Up to 1 Hour Radiology Report 03/18/2018 0:00 AM Radiology Report: Radiology ReportDIET & ACTIVITYPatient Activity Level:Patient Diet:RegularPatient Activity Restrictions:DISCHARGE INFORMATIONDischarge Disposition:Discharge Location:DEPART REASON INCOMPLETE INFORMATIONPATIENT EDUCATION INFORMATIONInstructions:Ulnar FractureFollow up:With: Address: When:RADHA ALFORD [address] [facility], [place] [address] Business (1)Comments:Call for follow up appointmentWith: Address: When:None ProviderDIAGNOSISClosed fracture of left olecranon processPROBLEMSProblems Active IBS (irritable bowel syndrome)Comment:PHYS DOC NOTESPatient Understanding: Yes - Patient/family/caregiver verbalizes understanding of instructions given Normal [facility] Inpatient Patient Summaryon 03-18-2018 Inpatient Patient Summary [address] [address] patient Discharge InstructionsName: SERGIO ALLEN LDOB: 36 Address: [address] [place] [address] Care Provider:Name: Provider, NonePhone:After you are discharged if you find you have any questions, please, call [phone] to speak to a nurse.Discharge Diagnosis: Closed fracture of left olecranon processIf you received any narcotics, sedation, or any other medication that causes drowsiness for the next 24 hours, unless otherwise directed:? Do not drive a car.? Do not operate machinery such as power tools, lawn mowers, drills, sewing machines, or stoves? Avoid alcoholic beverages and drugs for allergies, nerves, or sleep? Do not make important personal or business decisions or sign any legal documentsSumma Health [facility] would like to thank you for allowing us to assist you with your healthcare needs. The following includes patient education materials and information regarding your injury/illness.SERGIO ALLEN has been given the following list of follow-up instructions, prescriptions, and patient education materials:Follow-up InstructionsWith: Address: When:RADHA ALFORD [address] [place] [address], [address] [place] [phone] Business (1)Comments:Call for follow up appointmentWith: Address: When:None ProviderMedicationsDuring the course of your visit, your medication list was updated with the most current information. The details of those changes are reflected below:Medications to Continue That Have Not ChangedOther Medicationsacetaminophen-oxycod one (Percocet 5/325 oral tablet) 1 tab(s) Oral Every 4 hours as needed for pain.aspirin (aspirin 81 mg oral tablet) 1 tab(s) Oral every day.bifidobacterium-lactobacill us (Probiotic Formula) 1 tab(s) Oral every day.ibuprofen (ibuprofen 600 mg oral tablet) 1 tab(s) Oral Every 8 hours for 14 Days. Refills: 0.timolol ophthalmic (timolol hemihydrate 0.25% ophthalmic solution) 1 Drops Ophthalmic every day. both eyes.It is important to always keep an active list of medications available so that you can share with other providers and manage your medications appropriately. As an additional courtesy, we are also providing you with your final active medications list that you can keep with you.acetaminophen-oxycodone (Percocet 5/325 oral tablet) 1 tab(s) Oral Every 4 hours as needed for pain.aspirin (aspirin 81 mg oral tablet) 1 tab(s) Oral every day.bifidobacterium-lactobacill us (Probiotic Formula) 1 tab(s) Oral every day.ibuprofen (ibuprofen 600 mg oral tablet) 1 tab(s) Oral Every 8 hours for 14 Days. Refills: 0.timolol ophthalmic (timolol hemihydrate 0.25% ophthalmic solution) 1 Drops Ophthalmic every day. both eyes.Take only the medications listed above. Contact your doctor prior to taking any medications not on this list.Medication leaflets, if any, will display belowDiet & ActivityPatient Activity Level:Patient Diet: RegularPatient Activity Restrictions:Patient education materials, if any, will display belowUlnar FractureAn ulnar fracture is a break in the ulna bone, which is the forearm bone that is located on the same side as your little finger. Your forearm is the part of your arm that is between your elbow and your wrist. It is made up of two bones: the radius and ulna. The ulna forms the point of your elbow at its upper end. The lower end can be felt on the outside of your wrist. An ulnar fracture can happen near the wrist or elbow or in the middle of your forearm. Middle forearm fractures usually break both the radius and the ulna.What are the causes?A heavy, direct blow to the forearm is the most common cause of an ulnar fracture. It takes a lot of force to break a bone in your forearm. This type of injury may be caused by:? An accident, such as a car or bike accident.? Falling with your arm outstretched.What increases the risk?You may be at greater risk for an ulnar fracture if you:? Play contact sports.? Have a condition that causes your bones to be weak or thin (osteoporosis).What are the signs or symptoms?An ulnar fracture causes pain immediately after the injury. You may need to support your forearm with your other hand. Other signs and symptoms include:? An abnormal bend or bump in your arm (deformity).? Swelling.? Bruising.? Numbness or weakness in your hand.? Inability to turn your hand from side to side (rotate).How is this diagnosed?Your health care provider may diagnose an ulnar fracture based on:? Your symptoms.? Your medical history, including any recent injury.? A physical exam. Your health care provider will look for any deformity and feel for tenderness over the break. Your health care provider will also check whether the bone is out of place.? An X-ray exam to confirm the diagnosis and learn more about the type of fracture.How is this treated?The goals of treatment are to get the bone in proper position for healing and to keep it from moving so it will heal over time. Your treatment will depend on many factors, especially the type of fracture that you have.? If the fractured bone:? Is in the correct position (nondisplaced), you may only need to wear a cast or a splint.? Has a slightly displaced fracture, you may need to have the bones moved back into place manually (closed reduction) before the splint or cast is put on.? You may have a temporary splint before you have a plaster cast. The splint allows room for some swelling. After a few days, a cast can replace the splint.? You may have to wear the cast for about 6 weeks or as directed by your health care provider.? The cast may be changed after about 3 weeks or as directed by your health care provider.? After your cast is taken off, you may need physical therapy to regain full movement in your wrist or elbow.? You may need emergency surgery if you have:? A fractured bone that is out of position (displaced).? A fracture with multiple fragments (comminuted fracture).? A fracture that breaks the skin (open fracture). This type of fracture may require surgical wires, plates, or screws to hold the bone in place.? You may have X-rays every couple of weeks to check on your healing.Follow these instructions at home:If you have a cast:? Do not stick anything inside the cast to scratch your skin. Doing that increases your risk of infection.? Do not put pressure on any part of the cast until it is fully hardened. This may take several hours.? Check the skin around the cast every day. Report any concerns to your health care provider. You may put lotion on dry skin around the edges of the cast. Do not apply lotion to the skin underneath the cast.? Do not let your cast get wet if it is not waterproof.? Keep the cast clean.If you have a splint:? Wear it as told by your health care provider. Remove it only as told by your health care provider.? Do not put pressure on any part of the splint until it is fully hardened. This may take several hours.? Loosen the splint if your fingers become numb and tingle, or if they turn cold and blue.? Do not let your splint get wet if it is not waterproof.? Keep the splint clean.Bathing? Do not take baths, swim, or use a hot tub until your health care provider approves. Ask your health care provider if you can take showers. You may only be allowed to take sponge baths for bathing.? If your splint is not waterproof, protect it with a watertight covering when you take a bath or a shower.Managing pain, stiffness, and swelling? If directed, apply ice to the injured area:? Put ice in a plastic bag.? Place a towel between your skin and the bag.? Leave the ice on for 20 minutes, 2?3 times a day.? Move your fingers often to avoid stiffness and to lessen swelling.? Raise the injured area above the level of your heart while you are sitting or lying down.Driving? Do not drive or operate heavy machinery while taking pain medicine.? Do not drive while wearing a cast or splint on a hand that you use for driving.Activity? Return to your normal activities as directed by your health care provider. Ask your health care provider what activities are safe for you.? Do exercises as told by your health care provider.General instructions? Do not use your injured limb to support your body weight until your health care provider says that you can.? Do not use any tobacco products, including cigarettes, chewing tobacco, or electronic cigarettes. Tobacco can delay bone healing. If you need help quitting, ask your health care provider.? Take odgd-goo-okpeldq and prescription medicines only as told by your health care provider.? Keep all follow-up visits as told by your health care provider. This is important.Contact a health care provider if:? Your pain medicine is not helping.? Your cast gets damaged or it breaks.? Your cast becomes loose.? Your cast gets wet.? You have more severe pain or swelling than you did before the cast.? You have severe pain when stretching your fingers.? You continue to have pain or stiffness in your elbow or your wrist after your cast is taken off.Get help right away if:? You cannot move your fingers.? You lose feeling in your fingers or your hand.? Your hand or your fingers turn cold and pale or blue.? You notice a bad smell coming from your cast.? You have drainage from underneath your cast.? You have new stains from blood or drainage seeping through your cast.This information is not intended to replace advice given to you by your health care provider. Make sure you discuss any questions you have with your health care provider.Document Released: 02/24/2007 Document Revised: 08/11/2017 Document Reviewed: 02/20/2015[employer] Patient Education ? 2017 [employer].Viruses or BacteriaWhat?s got you sick?Antibiotics only treat bacterial infections. Viral illnesses cannot be treated with antibiotics. When an antibiotic is not prescribed, ask your healthcare professional for tips on how to relieve symptoms and feel better. Usual CauseIllness Viruses Bacteria Antibiotic NeededCold/Runny Nose NOBronchitis/Chest Cold (in otherwise healthy children and adults) NOWhooping Cough YesFlu NOStrep Throat YesSore Throat (except strep) NOFluid in the middle ear (otitis media with effusion) NOUrinary Tract Infection YesAntibiotics Aren?t Always the Answerwww.cdc.gov/getsmart GETSMARTKnow When Antibiotics [place] Department of Health and Human ServicesCenters for Disease Control and Prevention May 2014 [facility] MAGR Intraoperative Recordon 03-18-2018 MAGR Intraoperative Record MAGR Intra-Op Record Summary Primary Physician: Jairon Hall DO Finalized Date/Time: 03/18/18 16:59:47 Pt. Name: JOHNATHANMAUROSERGIO D.O.B./Sex: 1940 FEMALE Med Rec #: [id number] Physician: Jairon Hall DO Financial #: [id number] Pt. Type: D Room/Bed: 220/1 Admit/Disch: 03/18/18 11:41:07 - Institution: Case Times MAGR Entry 1 Patient In Room Time 03/18/18 13:54:00 Out Room Time 03/18/18 15:07:00 Anesthesia Start Time 03/18/18 13:54:00 Stop Time 03/18/18 15:07:00 Surgery Start Time 03/18/18 14:17:00 Stop Time 03/18/18 15:02:00 Last Modified By: Jamila Tsai RN 03/18/18 16:35:13 Case Attendance MAGR Entry 1 Entry 2 Entry 3 Case Attendee Jairon Hall, Dee Ventura CHLORINATION OPERATOR Role Performed Surgeon - Primary Anesthesiologist of Biometrics Instructor Record Time In 03/18/18 13:54:00 03/18/18 13:54:00 03/18/18 13:54:00 Time Out 03/18/18 15:07:00 03/18/18 15:07:00 03/18/18 15:07:00 Procedure Open Reduction Internal Open Reduction Internal Open Reduction Internal Fixation Elbow(Left) Fixation Elbow(Left) Fixation Elbow(Left) Last Modified By: Jamila Tsai RN, Lora RN Fresch, Lora RN 03/18/18 16:35:15 03/18/18 16:35:15 03/18/18 16:35:15 Entry 4 Entry 5 Entry 6 Case Attendee Brenda Leon Lora RN Calmes, Luke T Role Performed Scrub Personnel Corporate Recruiter Accounts Payable Bookkeeper Time In 03/18/18 13:54:00 03/18/18 13:54:00 03/18/18 13:54:00 Time Out 03/18/18 15:07:00 03/18/18 15:07:00 03/18/18 15:07:00 Procedure Open Reduction Internal Open Reduction Internal Open Reduction Internal Fixation Elbow(Left) Fixation Elbow(Left) Fixation Elbow(Left) Last Modified By: Jamila Tsai RN, Lora RN Fresch, Lora RN 03/18/18 16:35:15 03/18/18 16:35:15 03/18/18 16:35:15 Surgical Procedures MAGR Pre-Care Text: A.20 Verifies operative procedure, surgical site, and laterality Im.150 Develops individualized plan of care Entry 1 Procedure Open Reduction Internal Primary Procedure Yes Fixation Elbow Primary Surgeon Jairon Hall Modifiers Left Dee DEGROOT Surgeon Comment LEFT ULNAR ORIF Start 03/18/18 14:17:00 Stop 03/18/18 15:02:00 Anesthesia Type General Surgical Service Orthopedics Wound Class Clean Last Modified By: Jamila Tsai RN 03/18/18 16:35:17 Post-Care Text: O.730 The patient's care is consistent with the individualized perioperative plan of care General Case Data MAGR Pre-Care Text: A.350.1 Classifies surgical wound Entry 1 Case Information OR MAGR OR 02 Case Level Level 4 Wound Class Clean Specialty Orthopedics ASA Class 3 Diagnosis Preop Diagnosis Left Ulnar Fracture Postop Same As Preop Yes Postop Diagnosis Left Ulnar Fracture Last Modified By: Jamila Tsai RN 03/18/18 14:53:21 Post-Care Text: O.760 Patient receives consistent and comparable care regardless of the setting Time Out MAGR Entry 1 Time out date/time 03/18/18 14:12:00 All team members Yes have introduced themselves by name and role Surgeon, Yes Surgeon reviews Yes anesthesia, nurse critical or confirm patient, unexpected steps, site, procedure operative duration, anticipated blood loss Anesthesia team Yes Nursing team Yes reviews any reviews sterility patient-specific (including concerns indicator results) and equipment issues/concerns Antibiotic Antibiotic Yes Administration Time 13:50 prophylaxis given within the last 60 minutes Is essential Yes imaging displayed? Last Modified By: Jamila Tsai RN 03/18/18 14:54:27 Patient Positioning MAGR Pre-Care Text: A.280 Identifies baseline musculoskeletal status Im.40 Positions the patient Im.80 Applies safety devices Entry 1 Procedure Open Reduction Internal Body Position Supine Fixation Elbow(Left) Left Arm Position Held on field Right Arm Position Extended on padded arm board Left Leg Position Extended Right Leg Position Extended Feet Uncrossed? Yes Press Points Checked Yes Positioning Device Arm Boards, Arm Strap, Outcome Met (O.80) Yes Pillow, Safety Strap Last Modified By: Jamila Tsai RN 03/18/18 14:54:51 Post-Care Text: E.290 Evaluates musculoskeletal status O.80 Patient is free from signs and symptoms of injury related to positioning Skin Prep MAGR Pre-Care Text: A.30 Verifies allergies Im.270 Performs skin preparation Im.270.1 Implements protective measures to prevent skin and tissue injury due to chemical sources Entry 1 Skin Prep Syntegrity Prep Agents (Im.270) Chlorhexidine Gluconate Prep By Jamila Tsai RN and Alcohol Prep Area (Im.270) Elbow and forearm Prep Area Details Left Skin Prep Agent Dry Yes Without Pooling Hair Removal Syntegrity Hair Removal Methods No hair removal performed Outcome Met (O.100) Yes Last Modified By: Jamila Tsai RN 03/18/18 14:55:20 Post-Care Text: E.10 Evaluates for signs and symptoms of physical injury to skin and tissue O.100 Patient is free from signs and symptoms of chemical injury Counts Verification MAGR Pre-Care Text: A.20 Verifies operative procedure, surgical site, and laterality A.20.2 Assesses the risk for unintended retained foreign body Im.20 Performs required counts Entry 1 Procedure Open Reduction Internal Fixation Elbow(Left) Counts Verification Initial Counts Items included in Sponges, Sharps Initial Counts Manual the Initial Count Method Initial Counts Jamila Tsai RN, Initial Count Time 03/18/18 13:45:00 Performed By Brenda Leon Counts Verification Final Counts Items Included in Sponges, Sharps Final Count Method Manual Final Count Final Count Status Correct Final Counts Jamila Tsai RN, Performed By Brenda Leon Final Count Time 03/18/18 14:50:00 Surgeon notified of Yes final counts status Outcome Met (O.20) Yes Last Modified By: Jamila Tsai RN 03/18/18 14:57:24 Post-Care Text: E.50 Evaluates results of the surgical count O.20 Patient is free from unintended retained foreign objects Tourniquet MAGR Pre-Care Text: A.240 Assesses baseline skin condition Im.120 Implements protective measures to prevent skin or tissue injury due to mechanical sources Entry 1 Tourniquet Type TOURNQUET/AC OR2 (3603) Cuff Size 45.7 cm Serial Number [id number] Setting 250 mmHg Placement Arm upper Padding (Im.120) Yes Placement Details Left Tourniquet Times Inflated 03/18/18 14:14:00 Deflated 03/18/18 14:59:00 Total Time 44 Applied By Jairon Hall Removed By Jairon Hall DO Outcome Met (O.60) Yes Last Modified By: Jamila Tsai RN 03/18/18 16:35:47 Post-Care Text: E.10 Evaluates for signs and symptoms of physical injury to skin and tissue O.60 Patient is free from sign and symptoms of injury caused by extraneous objects Cautery MAGR Pre-Care Text: A.240 Assesses baseline skin condition A.40 Verifies presence of prosthetics or corrective devices Im.50 Implements protective measures to prevent injury due to electrical sources Entry 1 ESU Type Electrosurgical Unit Identification [id number] Number ESU Settings Syntegrity Cut Setting 50 Coag Setting 50 Grounding Pad Details Grounding Pad Yes Verified By Jamila Tsai RN Needed? Grounding Pad Site Table Grounding Pad Outcome Met (O.10) Yes Last Modified By: Jamila Tsai RN 03/18/18 16:36:27 Post-Care Text: E.10 Evaluates for signs and symptoms of physical injury to skin and tissue O.10 Patient is free from signs and symptoms of injury related to thermal sources Medication Administration MAGR Pre-Care Text: A.210 Identifies physiological status Im.220 Administers prescribed medications Entry 1 Time Administered 03/18/18 14:52:00 Medication 0.5% MARCAINE Route of Admin Incisional/Surgical Site Dose 10 mL By Jairon Hall Outcome Met (O.130) Yes Dee DO Last Modified By: Jamila Tsai RN 03/18/18 16:39:07 Post-Care Text: E.20 Evaluates response to medications O.130 Patient receives appropriately administered medication(s) X-Rays and Images MAGR Pre-Care Text: A.240 Assesses baseline skin condition A.240.1 Assesses history of previous radiation exposure Im.110 Implements protective measures to prevent injury due to radiation sources Entry 1 Site Elbow Site Details Left X-Ray Type C-Arm Protective Devices Yes Used Outcome Met (O.110) Yes Last Modified By: Jamila Tsai RN 03/18/18 16:39:29 Post-Care Text: E.10 Evaluates for signs and symptoms of physical injury to skin and tissue O.110 Patient is free from signs and symptoms of radiation injury Implant Log MAGR Pre-Care Text: A.20 Verifies operative procedure, surgical site, and laterality Im.350 Records implants inserted during the operative or invasive procedure Entry 1 Entry 2 Implant/Explant Implant Implant Implant Identification Description PATRIAIRE .062 CERCLAGE WIRE 1.25 Serial Number Lot Number Practice Director DARSHAN Catalog # Size .062 1.25 Expiration Date Usage Data Implant Site LEFT ELBOW LEFT WRIST Quantity 2 1 Outcome Met (O.30) Yes Yes Last Modified By: Jamila Tsai RN, Lora RN 03/18/18 16:53:00 03/18/18 16:53:00 Post-Care Text: E.30 Evaluates verification process for correct patient, site, side and level surgery O.30 Patient's procedure is performed on the correct site, side, and level Dressing/Packing MAGR Pre-Care Text: A.350 Assesses susceptibility for infection Im.290 Administer care to wound sites Entry 1 Skin Prep Agent Yes Site Hand Removed Prior to Dressing? Dressing Item Details Dressing Item ABD, 4x4's, Cotton Tape (Im.290) Elastic Sports Bandage (Im.290) Batting Outcome Met Yes Last Modified By: Jamila Tsai RN 03/18/18 16:40:44 Post-Care Text: E.200 Evaluates progress of wound healing O.200 Patient's wound perfusion is consistent with or improved from baseline levels General Comments: SILVALON DRESSING APPLIED Departure from OR MAGR Entry 1 Present on Depart Oxygen Via Stretcher Post-op Destination PACU Skin DFO Condition Dry Description Condition Intact Description Report Given To Lexie Yanes Airway Maintenance Patient Status Stable Oxygen in Use? Yes Airway Device Simple mask Flow Rate 8 Last Modified By: Jamila Tsai RN 03/18/18 16:41:04 Case Comments Finalized By: Jamila Tsai RN Document Signatures Signed By: Jamila Tsai RN 03/18/18 16:59 [facility] Primary Physician: Jairon Hall DO Finalized Date/Time: 03/18/18 16:56:48 Pt. Name: TIFFANYSERGIO/Sex: 1940 FEMALE Med Rec #: [id number] Physician: Jairon Hall DO Financial #: [id number] Pt. Type: D Room/Bed: 220/1 Admit/Disch: 03/18/18 11:41:07 - Institution: PACU Case Times MAGR Entry 1 In PACU I 03/18/18 15:05:00 Discharge from PACU 03/18/18 16:27:00 I Last Modified By: Lexie Yanes 03/18/18 16:56:45 Finalized By: Lexie Yanes Document Signatures Signed By: Lexie Yanes 03/18/18 16:56 [facility] Operative Report - Surgeon/Nadeem doshi 03-18-2018 Operative Report - Surgeon/Evgeny perez Preoperative diagnosis: Closed displaced left olecranon fracturePostoperative diagnosis: SameProcedure: Open reduction internal fixation utilizing tension band technique left olecranonSurgeon: Mary Lou Hall D.O.Anesthesia: GeneralIndications for surgery: There was a completely displaced olecranon fractureEstimated blood loss: ScantComplications: NoneFindings: Displaced olecranon fractureProcedure summary: The patient was brought to the operating room she was given general anesthesia and positioned supine left arm was sterilely prepped and draped in usual fashion and then a timeout was taken in the operating roomNormals exsanguinated and tourniquet was inflated to 250 mmHg. Incision was made over the dorsal elbow. Dissection was carried down and the fracture site was identified care was taken to stay away from the ulnar nerve. There was a large hematoma and this was evacuated. The periosteum was cleaned from the fracture site and I could see within the joint the joint and fracture site were further irrigated.Manually reduce the fracture and held it in place with reduction forceps. I drove 2 K wires across the fracture and then drilled a hole transversely and the olecranon distal to the fracture site. I then passed a cerclage wire through the olecranon and crisscrossed this over the dorsal lateral at the fracture site wrapped around the K wires and tension band creating compression across the fracture site. I obtained intraoperative x-rays which showed anatomic reduction. I then bent the K wires 90? internal around the hook the cerclage wire and push them down into the soft tissues.I took the elbow through range of motion verify the fracture was stable. Irrigated cup smell sterile saline and a cholecystectomy as layers with a 0 Vicryl suture. The skin was then closed with 3-0 nylon suture. Silverlon dressing and sterile dressings were applied with a bulky bandage.[Electronically Signed on: 03/18/2018 16:17 EDT] Jairon Hall DO[Verified on: 03/18/2018 16:17 EDT] Jairon Hall DO [facility] Progress Note - Nurseon 02-26 Progress Note - Nurse Ate well. No complaint of nausea. Requests pain medication- adm. as per order. Post op et discharge orders reviewed with pt. et sister. Both verbalized understanding of same. Ice bag to right elbow.[Electronically Signed on: 03/18/2018 18:55 EDT] Tamara Mcclendon RN[Verified on: 03/18/2018 18:55 EDT] Tamara Mcclendon RN [facility] Protein Up to bathroom et vo ided. More awake at this time. Gait slow et steady. Meal tray provided. Sister at bedside.[Electronically Signed on: 03/18/2018 18:52 EDT] Tamara Mcclendon RN[Verified on: 03/18/2018 18:52 EDT] Tamara Mcclendon RN [facility] INR Coag RelTime (Bld) Arrives in room 220 from surgery. Drowsy, responds readily to verbal stimulus. Skin, pale, warm ,et dry. Left elbow drsg. intact. Fingers good with rapid cap. refill. Sling in place. Able to move fingers without problem. No complaint of numbness. Taking water et ice chips. Resting quietly at this time. Will continue to monitor closely.[Electronically Signed on: 03/18/2018 18:50 EDT] Tamara Mcclendon RN[Verified on: 03/18/2018 18:50 EDT] Tamara Mcclendon RN [facility] Progress Note - Nurse Dr Badillo reviews pt chart and ok pt for surgery.[Electronically Signed on: 03/18/2018 10:37 EDT] Jenni Espinal RN[Verified on: 03/18/2018 10:37 EDT] Jenni Espinal RN [facility] XR Fluoroscopy Up to 1 [place]ouro n 03-18-2018 XR Fluoroscopy Up to 1 Hour ELBOW TWO VIEWS LEFT AND FLUOROSCOPY UP TO ONE HOURCLINICAL DATA: Left proximal ulnar fracture, status post surgical reductionFour spot film views of the left elbow were obtained in AP and lateralprojections and compared to the left elbow study dated 03/12/2018.This study demonstrates two stabilizing pins and a stabilizing wire at thelevel of the previously noted olecranon fracture, the fracture fragmentsappear to be grossly well-aligned and maintained. There is additional tinyopacity posterior to the olecranon process of the ulna which can becorrelated with the procedure. Soft tissue swelling is noted related tosurgery. No definite acute fracture or dislocation.Total fluoroscopy time for the procedure was 38.3 seconds.IMPRESSION:1. LEFT ELBOW STUDY DEMONSTRATES UNREMARKABLE POSTOPERATIVE APPEARANCE OFTHE LEFT ELBOW DESCRIBED.2. FLUOROSCOPY IS UTILIZED BY THE SURGEON DURING THIS PROCEDURE.WALTER Tai #: [id number]: 03/18/2018T: 03/18/2018 Final Dictated by: Aman Do MD SDictated DT/TM: 03/18/18 4:13Signed (Electronic Signature): Aman Do MD 03/18/18 4:29 pmTechnologist: [facility] Coding Summaryon 03-16-2018 Coding Summary CODING DATE: [facility] STATUS: Home PAYOR: Medicare APC DESCRIPTION 5522 Level 2 Imaging without Contrast 5101 Level 1 Strapping and Cast Application ADMIT DX: REASON FOR VISIT DX: M25.522 Pain in left elbow FINAL DX: PRINCIPAL: S80.01XA Contusion of right knee, initial encounter SECONDARY: R07.81 Pleurodynia S52.022A Displaced fracture of olecranon process without intraarticular extension of left ulna, initial encounter for closed fracture W01.0XXA Fall on same level from slipping, tripping and stumbling without subsequent striking against object, initial encounter PYMT PROC APC STAT DESCRIPTION DOCTOR NAME DATE NOTE: The code number assigned matches the documented diagnosis and / or procedure in the patient's chart. However, the narrative phrase printed from the coding software may appear abbreviated, or result in slightly different terminology. Coded By: Gabriele De La Rosa' Date Saved: 03/16/2018 03:30 pm [facility] Coding Summary CODING DATE: 018 [facility] STATUS: Home PAYOR: Medicare APC DESCRIPTION 5522 Level 2 Imaging without Contrast ADMIT DX: REASON FOR VISIT DX: M25.522 Pain in left elbow FINAL DX: PRINCIPAL: S80.01XA Contusion of right knee, initial encounter SECONDARY: R07.81 Pleurodynia S52.022A Displaced fracture of olecranon process without intraarticular extension of left ulna, initial encounter for closed fracture PYMT PROC APC STAT DESCRIPTION DOCTOR NAME DATE NOTE: The code number assigned matches the documented diagnosis and / or procedure in the patient's chart. However, the narrative phrase printed from the coding software may appear abbreviated, or result in slightly different terminology. Coded By: Gabriele De La Rosa' Date Saved: 03/16/2018 03:29 pm Normal [facility] .Auto Diff 1on 03-15-2018 Auto Baso % 0.3 % Normal 0.2-2.0 [facility] Comment on above: Performed By: #### [id number], [id number], 15 [id number] ####[facility] (DEFAULT)[address] [place] [address] Auto [place] % 9 % Normal 1-12 [facility] Comment on above: Performed By: #### [id number], [id number], 15 [id number] ####[facility] (DEFAULT)[address] [place] [address] Auto Neut % 60 % Normal 44-88 [facility] Comment on above: Performed By: #### [id number], [id number], 15 [id number] ####[facility] (DEFAULT)[address] [place] [address] Baso Abs# 0.0 x10 Normal 0.0-0.2 [facility] Comment on above: Performed By: #### [id number], [id number], 15 [id number] ####[facility] (DEFAULT)[address] [place] [address] Eos Abs# 0.2 x10 Normal 0.0-0.4 [facility] Comment on above: Performed By: #### [id number], [id number], 15 [id number] ####[facility] (DEFAULT)[address] [place] [address] Eosinophils/100 leukocytes 3.1 % Normal 0.9-4.0 [facility] Comment on above: Performed By: #### [id number], [id number], 15 [id number] ####[facility] (DEFAULT)[address] [place] [address] Lymphocytes 1.9 x10 Normal 1.3-2.9 [facility] Comment on above: Performed By: #### [id number], [id number], 15 [id number] ####[facility] (DEFAULT)[address] [place] [address] Lymphocytes/100 leukocytes 28 % Normal 14-48 [facility] Comment on above: Performed By: #### [id number], [id number], 15 [id number] ####[facility] (DEFAULT)[address] [place] [address] [place] Abs# 0.6 x10 Normal 0.0-0.8 [facility] Comment on above: Performed By: #### [id number], [id number], 15 [id number] ####[facility] (DEFAULT)[address] [place] [address] Neut Abs# 4.0 x10 Normal 1.5-9.2 [facility] Comment on above: Performed By: #### [id number], [id number], 15 [id number] ####[facility] (DEFAULT)[address] [place] [address] Standardon 03-15-2018 eGFR Non AA >60 Invalid Interpretation Code [facility] Comment on above: Performed By: #### [id number], [id number], 15 [id number] ####[facility] (DEFAULT)[address] [place] [address] eGFR AA >60 Invalid Interpretation Code [facility] Comment on above: Result Comment: Chronic Kidney disease c ould be indicated at eGFRs of less than 60 ml/min/1.73m2. Kidney Failure is indicated at less than 15 ml/min/1.73m2 Performed By: #### [id number], [id number], [id number] ####[facility] (DEFAULT)[address] [place] [address] Anion gap 10.0 mmol/L Normal 5.0-19.0 [facility] Comment on above: Performed By: #### [id number], [id number], 15 [id number] ####[facility] (DEFAULT)[address] [place] [address]6812 BUN/Creatinine Ratio 24.0 mg/mg High 4.6-16.2 [facility] Comment on above: Performed By: #### [id number], [id number], 15 [id number] ####[facility] (DEFAULT)[address] [place] [address] Calcium 9.2 mg/dL Normal 8.9-10.3 [facility] Comment on above: Performed By: #### [id number], [id number], 15 [id number] ####[facility] (DEFAULT)[address] [place] [address]80 Chloride 103 mmol/L Normal 101-111 [facility] Comment on above: Performed By: #### [id number], [id number], 15 [id number] ####[facility] (DEFAULT)[address] [place] [address]2949 CO2 27 mmol/L Normal 21-32 [facility] Comment on above: Performed By: #### [id number], [id number], 15 [id number] ####[facility] (DEFAULT)[address] [place] [address]370 Creatinine 0.80 mg/dL Normal 0.60-1.30 [facility] Comment on above: Performed By: #### [id number], [id number], 15 [id number] ####[facility] (DEFAULT)[address] [place] [address] 27052 Glucose mass conc 148.0 mg/dL High 74.0-118.0 [facility] Comment on above: Performed By: #### [id number], [id number], 15 [id number] ####[facility] (DEFAULT)[address] [place] [address] 08195 Osmolality 277 mOsm/L Invalid Interpretation Code [facility] Comment on above: Performed By: #### [id number], [id number], 15 [id number] ####[facility] (DEFAULT)[address] [place] [address] 03470 Potassium molar conc 3.8 mmol/L Normal 3.6-5.1 [facility] Comment on above: Performed By: #### [id number], [id number], 15 [id number] ####[facility] (DEFAULT)[address] [place] [address] 55265 Sodium 136.0 mmol/L Normal 136.0-144.0 [facility] Comment on above: Performed By: #### [id number], [id number], 15 [id number] ####[facility] (DEFAULT)[address] [place] [address] 77227 Urea nitrogen 19 mg/dL Normal 8-26 [facility] Comment on above: Performed By: #### [id number], [id number], 15 [id number] ####[facility] (DEFAULT)[address] [place] [address] 60905 CBC w/ Auto Diffon 8 Erythrocyte distribution width Auto Ratio (RBC) 12.8 % Normal 11.5-15.0 [facility] Comment on above: Performed By: #### [id number], [id number], 15 [id number] ####[facility] (DEFAULT)[address] [place] [address] Erythrocytes (RBC) 3.86 x10 Normal 3.70-5.30 [facility] Comment on above: Performed By: #### [id number], [id number], 15 [id number] ####[facility] (DEFAULT)[address] [place] [address] Hematocrit (HCT) 38.3 % Normal 33.7-40.4 [facility] Comment on above: Performed By: #### [id number], [id number], 15 [id number] ####[facility] (DEFAULT)[address] [place] [address] 04693 Hemoglobin mass conc (Bld) 12.8 g/dL Normal 11.3-15.9 [facility] Comment on above: Performed By: #### [id number], [id number], 15 [id number] ####[facility] (DEFAULT)[address] [place] [address] 81471 Man Diff? Auto Normal [facility] Comment on above: Performed By: #### [id number], [id number], 15 [id number] ####[facility] (DEFAULT)[address] [place] [address] 95365 MCH 33 pg Normal 24-34 [facility] Comment on above: Performed By: #### [id number], [id number], 15 [id number] ####[facility] (DEFAULT)[address] [place] [address] 44417 MCHC mass conc (RBC) 33 g/dL Normal 26-37 [facility] Comment on above: Performed By: #### [id number], [id number], 15 [id number] ####[facility] (DEFAULT)[address] [place] [address] 05888 MCV 99 fL Normal 81-100 [facility] Comment on above: Performed By: #### [id number], [id number], 15 [id number] ####[facility] (DEFAULT)[address] [place] [address] 67424 Platelet mean volume (PMV) 9.5 fL Normal 6.3-10.2 [facility] Comment on above: Performed By: #### [id number], [id number], 15 [id number] ####[facility] (DEFAULT)[address] [place] [address] 66416 Platelets 234 x10 Normal 138-427 [facility] Comment on above: Performed By: #### [id number], [id number], 15 [id number] ####[facility] (DEFAULT)[address] [place] [address] 53194 WBC (Leukocytes) 6.7 x10 Normal 3.5-10.5 [facility] Comment on above: Performed By: #### [id number], [id number], 15 [id number] ####[facility] (DEFAULT)[address] [place] [address] 08131 ED Clinical Summaryon 2017 ED Clinical Summary [facility] ? Urgent [id number] [place] [id number] clinical SummaryPERSON INFORMATIONName: SERGIO ALLEN Age: 78 Years Sex: FEMALEDOB: [birth year] MRN: Acct#:Visit Reason: UC - Rib/Trunk Pain or Swelling; UC - Knee Pain or Swelling; UC - Elbow Injury; FALL, LEFT ELBOW PAIN/SWELLING, LEFT RIB PAIN Arrival: 03/12/18 11:07:00 Discharge: 03/12/18 12:55:00LOS: 000 01:48 Check In: 03/12/18 11:07:00 Checkout: 03/12/18 12:55:00Address:[address] [place] [address]YEH: Provider, NonePROVIDER INFORMATIONProvider Role Assigned UnassignedRoz Jean ED PA 03/12/18 11:18:15Nicolette Evans DIGITAL PERFORMANCE ANALYST Nurse 03/12/18 11:37:42VITALS INFORMATIONVital Sign Triage LatestTemperature TympanicTemperature Temporal ArteryPulse Rate 67 bpm 67 bpmO2 Sat 98 % 98 %Respiratory Rate 20 br/min 20 br/minBlood Pressure 176 mmHg/102 mmHg 176 mmHg/102 mmHgMEDICAL INFORMATIONMedications Given:Medication Dose Routeacetaminophen-hydrocodone 1 tab(s) POAllergy Information:No Known Medication AllergiesPHYSICIAN DOCUMENTATIONPatient: SERGIO ALLEN : 78 years Sex: FEMALE : [birth year]Associated Diagnoses: Knee contusionAuthor: Nancy Jean InformationAdditional information: Chief Complaint from Nursing Triage Note : Chief Kzfovezbb62/16/18 11:10 EDT Chief Complaint C/o left elbow swelling and pain, left rib aching and right knee swelling and aching. .History of Present Mfcgkfd50-ykbl-lvs female presents here with a chief complaint of fall. Patient tripped earlier today with the loss of conscious. She has a small abrasion above the left eyebrow. Hematoma to the left elbow hematoma to the right knee and left lateral lower rib cage pain. She denies any headache blurred vision double vision. She has no swelling to the forehead. She states most for impact was to the elbow and knee area. Significant swelling noted to the left elbow and right knee. She does have full range of motion but winces with movement of the elbow. She is not on any blood thinners. Injury occurred just prior to arrival. Left rib pain noted on examination but there is no crepitus or bruising noted.Review of SystemsConstitutional symptoms: Negative except as documented in HPI.Musculoskeletal symptoms: Joint pain, left lower rib, right knee, left elbow.Health StatusAllergies:Allergic Reactions (Selected)No Known Medication Allergies.Medications: (Selected)Inpatient MedicationsOrderedNorco 5 mg-325 mg oral tablet: 1 tab(s), PO, Once.Past Medical/ Family/ Social HistoryMedical history:No active or resolved past medical history items have been selected or recorded..Surgical history:No active procedure history items have been selected or recorded..Physical Examination Vital SignsVital Signs03/12/18 11:55 EDT Temperature Oral 36.5 DegC Peripheral Pulse Rate 67 bpm Respiratory Rate 20 br/min Systolic Blood Pressure 176 mmHg HI Diastolic Blood Pressure 102 mmHg HI SpO2 98 % O2 Flow 0 L/min.General: Alert, no acute distress.Skin: Warm, dry.Head: Normocephalic, atraumatic.Neck: Supple, trachea midline.Eye: Pupils are equal, round and reactive to light, extraocular movements are intact.Ears, nose, mouth and throat: Tympanic membranes clear, oral mucosa moist.Cardiovascular: Regular rate and rhythm, No murmur.Respiratory: Lungs are clear to auscultation, respirations are non-labored.Chest wall: No tenderness, On exam: Left, inferior, moderate, ecchymosis, no crepitus, no subcutaneous emphysema.Back: Nontender, Normal range of motion.Musculoskeletal: Normal ROM, normal strength, Proximal upper extremity: Left, elbow, olecranon, tenderness, swelling, Lower extremity: Right, knee, tenderness, swelling, abrasion.Neurological: Alert and oriented to person, place, time, and situation.LymphaticsPsychiatric : Cooperative, appropriate mood & affect.Medical Decision MakingDifferential Diagnosis: Fall, contusion, closed fracture.Reexamination/ Wrtzebjzlapi20-hrnl-dvl female presenting here with a chief complaint of a fall. Further examination and evaluation patient had a left olecranon fracture. X-ray reading consistent with olecranon fracture. My fracture care here in the emergency room was started. 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 Patient tolerated well. Patient also had right knee abrasion and swelling. Knee Yeyo wrap was applied. Patient tolerated that well also. Patient was medicated here with Luke. Patient tolerated Luke well. She is going to go home and stay with a friend who is here at her bedside. She is going to refer herself either to yeyo and sebastián orthopedic surgeon was also given Dr. Hall's name with copy of the disc. Patient will follow-up with that orthopedic surgeon of choice. She will return here with any worsening symptoms condition. She had no headache blurred vision or double vision here today no need for a CT scan and no swelling of the forehead. She denied and refused any CT scans of her head patient wished to be cared for here in the urgent care.Impression and PlanDiagnosisKnee contusion (BCC73-IA S80.00XA, Discharge, Medical)PlanCondition: Improved.Disposition: Discharged: Time 03/12/18 12:46:00, to home.Prescriptions: Launch prescriptionsPharmacy:ibuprofen 600 mg oral tablet (Prescribe): 600 mg, 1 tab(s), PO, q8hr, for 14 day(s), 42 tab(s), 0 Refill(s)Luke 5 mg-325 mg oral tablet (Prescribe): 1 tab(s), PO, q4hr, for 7 day(s), PRN: for pain, 20 tab(s), 0 Refill(s).Patient was given the following educational materials: Rib Contusion, Elbow Fracture Treated With ORIF, Elbow Fracture Treated With ORIF, Rib Contusion.Follow up with: None Provider; Jairon Hall In 2 days 03/14/18.Counseled: Patient, Friend, Regarding diagnostic results, Regarding treatment plan, Regarding prescription.DISCHARGE INFORMATION:Discharge Disposition: HomeDischarge Location:PATIENT EDUCATION INFORMATIONInstructions: Elbow Fracture Treated With ORIF; Rib ContusionFollow-Up:With: Address: When:Jairon Hall [address] [place] [address], [place], [phone] Business (2) In 2 days 03/14/18With: Address: When:None ProviderDIAGNOSIS:Knee contusion; Olecranon fracture; Rib contusionPatient Understands: Yes - Patient/family/caregiver verbalizes understanding of instructions givenComment: [facility] - Physicianon 2017 ED Note - Physician Patient: SERGIO ALLEN : 78 years Sex: FEMALE : [birth year]Associated Diagnoses: Knee contusionAuthor: Nancy Jean InformationAdditional information: Chief Complaint from Nursing Triage Note : Chief Fsdwedmey47/16/18 11:10 EDT Chief Complaint C/o left elbow swelling and pain, left rib aching and right knee swelling and aching. .History of Present Mslnnkx39-yhqt-isz female presents here with a chief complaint of fall. Patient tripped earlier today with the loss of conscious. She has a small abrasion above the left eyebrow. Hematoma to the left elbow hematoma to the right knee and left lateral lower rib cage pain. She denies any headache blurred vision double vision. She has no swelling to the forehead. She states most for impact was to the elbow and knee area. Significant swelling noted to the left elbow and right knee. She does have full range of motion but winces with movement of the elbow. She is not on any blood thinners. Injury occurred just prior to arrival. Left rib pain noted on examination but there is no crepitus or bruising noted.Review of SystemsConstitutional symptoms: Negative except as documented in HPI.Musculoskeletal symptoms: Joint pain, left lower rib, right knee, left elbow.Health StatusAllergies:Allergic Reactions (Selected)No Known Medication Allergies.Medications: (Selected)Inpatient MedicationsOrderedNorco 5 mg-325 mg oral tablet: 1 tab(s), PO, Once.Past Medical/ Family/ Social HistoryMedical history:No active or resolved past medical history items have been selected or recorded..Surgical history:No active procedure history items have been selected or recorded..Physical Examination Vital SignsVital Signs03/12/18 11:55 EDT Temperature Oral 36.5 DegC Peripheral Pulse Rate 67 bpm Respiratory Rate 20 br/min Systolic Blood Pressure 176 mmHg HI Diastolic Blood Pressure 102 mmHg HI SpO2 98 % O2 Flow 0 L/min.General: Alert, no acute distress.Skin: Warm, dry.Head: Normocephalic, atraumatic.Neck: Supple, trachea midline.Eye: Pupils are equal, round and reactive to light, extraocular movements are intact.Ears, nose, mouth and throat: Tympanic membranes clear, oral mucosa moist.Cardiovascular: Regular rate and rhythm, No murmur.Respiratory: Lungs are clear to auscultation, respirations are non-labored.Chest wall: No tenderness, On exam: Left, inferior, moderate, ecchymosis, no crepitus, no subcutaneous emphysema.Back: Nontender, Normal range of motion.Musculoskeletal: Normal ROM, normal strength, Proximal upper extremity: Left, elbow, olecranon, tenderness, swelling, Lower extremity: Right, knee, tenderness, swelling, abrasion.Neurological: Alert and oriented to person, place, time, and situation.LymphaticsPsychiatric : Cooperative, appropriate mood & affect.Medical Decision MakingDifferential Diagnosis: Fall, contusion, closed fracture.Reexamination/ Ocqexwezvrmz83-uaic-yfu female presenting here with a chief complaint of a fall. Further examination and evaluation patient had a left olecranon fracture. X-ray reading consistent with olecranon fracture. My fracture care here in the emergency room was started. 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 Patient tolerated well. Patient also had right knee abrasion and swelling. Knee Yeyo wrap was applied. Patient tolerated that well also. Patient was medicated here with Luke. Patient tolerated Luke well. She is going to go home and stay with a friend who is here at her bedside. She is going to refer herself either to yeyo and sebastián orthopedic surgeon was also given Dr. Hall's name with copy of the disc. Patient will follow-up with that orthopedic surgeon of choice. She will return here with any worsening symptoms condition. She had no headache blurred vision or double vision here today no need for a CT scan and no swelling of the forehead. She denied and refused any CT scans of her head patient wished to be cared for here in the urgent care.Impression and PlanDiagnosisKnee contusion (RSM15-IN S80.00XA, Discharge, Medical)PlanCondition: Improved.Disposition: Discharged: Time 03/12/18 12:46:00, to home.Prescriptions: Launch prescriptionsPharmacy:ibuprofen 600 mg oral tablet (Prescribe): 600 mg, 1 tab(s), PO, q8hr, for 14 day(s), 42 tab(s), 0 Refill(s)Luke 5 mg-325 mg oral tablet (Prescribe): 1 tab(s), PO, q4hr, for 7 day(s), PRN: for pain, 20 tab(s), 0 Refill(s).Patient was given the following educational materials: Rib Contusion, Elbow Fracture Treated With ORIF, Elbow Fracture Treated With ORIF, Rib Contusion.Follow up with: None Provider; Jairon Hall In 2 days 03/14/18.Counseled: Patient, Friend, Regarding diagnostic results, Regarding treatment plan, Regarding prescription.[Electronically Signed on: 03/12/2018 13:03 EDT] Roz Jean[Verified on: 03/12/2018 13:03 EDT] Roz Jean [facility] ED Note-Nursingon 03-12-2018 ED Note-Nursing Left posterior splin t applied to upper arm around elbow and to wrist in position of function using 4 inch OCL, 3 inch stockinet, 3 inch webril padding, and 2- 3 inch yeyo bandages per orders of Lorena Stewart PA-C with assistance from EPIFANIO. Capillary refill less than 2 seconds in fingers of left hand after splint applied. Instructed patient and friend on neurovascular checks of left hand/arm. Verbalized understanding. Sling applied to left arm per orders. [facility] ED Patient Summaryon 018 ED Patient Summary [facility] ? [place]gent [place] [place] [id number] pATIENT DISCHARGE INSTRUCTIONSPatient InformationName: SERGIO ALLEN Age: 78 YearsDate of : [birth year]MRN: [id number] For Visit: UC - Rib/Trunk Pain or Swelling; UC - Knee Pain or Swelling; UC - Elbow Injury; FALL, LEFT ELBOW PAIN/SWELLING, LEFT RIB PAINArrival Time: 03/12/18 11:07:00Phone: Primary Care Physician: Provider, NoneAttending Physician: Roz JeanComment:Patient EducationWith: Address: When:Jairon Hall [address] [place] [address], [place], [phone] Business (2) In 2 days 03/14/18With: Address: When:None ProviderElbow Fracture Treated With ORIFAn elbow fracture is a break in a bone or bones of your elbow. Your elbow is a hinged joint that is made up of three bones. These bones are the long bone in your upper arm (humerus), the bone in the outer part of your lower arm (radius), and the bone in the inner part of your lower arm (ulna). The tip of your elbow (olecranon) is part of your ulna. If the fracture is displaced, that means that the bones are not lined up correctly and may be unstable. The bones will be put back into position with a procedure that is called open reduction with internal fixation (ORIF). A combination of metal pins, screws with or without a metal plate, or different types of wiring are used to hold the bones in place.Tell a health care provider about:? Any allergies you have.? All medicines you are taking, including vitamins, herbs, eye drops, creams, and flbw-yif-sslukeg medicines.? Any problems you or family members have had with anesthetic medicines.? Any blood disorders you have.? Any surgeries you have had.? Any medical conditions you have.What are the risks?Generally, this is a safe procedure. However, problems may occur, including:? Bleeding.? Infection.? Elbow stiffness.? Nerve damage.? Blood vessel damage.? Loosening or breaking of the screws or plates that are used for internal fixation.? Failure of the fracture to heal properly.? Need to have surgery again.What happens before the procedure?? Ask your health care provider about:? Changing or stopping your regular medicines. This is especially important if you are taking diabetes medicines or blood thinners.? Taking medicines such as aspirin and ibuprofen. These medicines can thin your blood. Do not take these medicines before your procedure if your health care provider instructs you not to.? Do not drink alcohol before your procedure or as directed by your health care provider.? Do not use any tobacco products, including cigarettes, chewing tobacco, or e-cigarettes before the procedure or as directed by your health care provider. If you need help quitting, ask your health care provider. Using tobacco products can delay or prevent bone healing.? Follow instructions from your health care provider about eating or drinking restrictions.? Plan to have someone take you home after the procedure.? If you go home right after the procedure, plan to have someone with you for 24 hours.What happens during the procedure?? An IV tube will be inserted into one of your veins.? You will be given one or more of the following:? A medicine that helps you relax (sedative).? A medicine that makes you fall asleep (general anesthetic).? A medicine that is injected into an area of your body that numbs everything below the injection site (regional anesthetic).? Your arm will be cleaned with a germ-killing solution (antiseptic) and covered with sterile cloths.? Your surgeon will make an incision in your elbow over the fracture.? The structures around your elbow will be moved aside carefully to expose your fracture.? The bone pieces will be put back into their normal positions.? Your surgeon may use metal screws, wires, pins, or plates to hold the bone pieces in position.? After the bones are back in place, the incision will be closed with stitches (sutures) or js.? A bandage (dressing) will be placed over the incision.? A splint may be placed on your arm.The procedure may vary among health care providers and hospitals.What happens after the procedure?? Your blood pressure, heart rate, breathing rate, and blood oxygen level will be monitored often until the medicines you were given have worn off.? It is normal to have pain after the procedure. You will be given medicine for pain as needed.? You may be sent home with a sling to support your arm.This information is not intended to replace advice given to you by your health care provider. Make sure you discuss any questions you have with your health care provider.Document Released: 03/09/2002 Document Revised: 02/18/2017 Document Reviewed: 09/09/2015[employer] Interactive Patient Education ? 2018 [employer]Rib ContusionA rib contusion is a deep bruise on your rib area. Contusions are the result of a blunt trauma that causes bleeding and injury to the tissues under the skin. A rib contusion may involve bruising of the ribs and of the skin and muscles in the area. The skin overlying the contusion may turn blue, purple, or yellow. Minor injuries will give you a painless contusion, but more severe contusions may stay painful and swollen for a few weeks. What are the causes?A contusion is usually caused by a blow, trauma, or direct force to an area of the body. This often occurs while playing contact sports.What are the signs or symptoms?? Swelling and redness of the injured area.? Discoloration of the injured area.? Tenderness and soreness of the injured area.? Pain with or without movement.How is this diagnosed?The diagnosis can be made by taking a medical history and performing a physical exam. An X-ray, CT scan, or MRI may be needed to determine if there were any associated injuries, such as broken bones (fractures) or internal injuries.How is this treated?Often, the best treatment for a rib contusion is rest. Icing or applying cold compresses to the injured area may help reduce swelling and inflammation. Deep breathing exercises may be recommended to reduce the risk of partial lung collapse and pneumonia. Breb-zzb-suifhiv or prescription medicines may also be recommended for pain control.Follow these instructions at home:? Apply ice to the injured area:? Put ice in a plastic bag.? Place a towel between your skin and the bag.? Leave the ice on for 20 minutes, 2?3 times per day.? Take medicines only as directed by your health care provider.? Rest the injured area. Avoid strenuous activity and any activities or movements that cause pain. Be careful during activities and avoid bumping the injured area.? Perform deep-breathing exercises as directed by your health care provider.? Do not lift anything that is heavier than 5 lb (2.3 kg) until your health care provider approves.? Do not use any tobacco products, including cigarettes, chewing tobacco, or electronic cigarettes. If you need help quitting, ask your health care provider.Contact a health care provider if:? You have increased bruising or swelling.? You have pain that is not controlled with treatment.? You have a fever.Get help right away if:? You have difficulty breathing or shortness of breath.? You develop a continual cough, or you cough up thick or bloody sputum.? You feel sick to your stomach (nauseous), you throw up (vomit), or you have abdominal pain.This information is not intended to replace advice given to you by your health care provider. Make sure you discuss any questions you have with your health care provider.Document Released: 06/08/2002 Document Revised: 02/18/2017 Document Reviewed: 06/25/2015Bhavesh Interactive Patient Education ? 2018 [employer].Medication Information:The exam and treatment you received today in the [facility] Emergency Department were for an urgent problem and are not intended as complete care. It is important for you to follow up with a doctor, nurse practitioner, or physician?s public health training assistant for ongoing care. If your symptoms become worse or you do not improve as expected and you are unable to reach your usual health care provider, you should return to the Emergency Department, we are available 24 hours a day.For those patients who have received Radiology results, the interpretation of your X-ray as given to you by our Emergency Department physician is only a preliminary report. The Radiologist will review your films and if there is a change in the diagnosis you will be notified by phone. Please make sure you have provided a working phone number so we can reach you if necessary.In the event that you had a lab culture while you were a patient in the Emergency Department, you will be notified by phone if there is a need to change your antibiotic. Please make sure you have provided a working phone number so we can reach you if necessary.[facility] Emergency Department has provided you with a complete list of medications post discharge. Please inform your primary special educator/provider of your visit and for further instruction on these medications. Any specific questions regarding your chronic medications and dosages should be discussed with your primary care physician(s) and/or pharmacist. New MedicationsPrinted Prescriptionsacetaminophen-hydr ocodone (Luke 5 mg-325 mg oral tablet) 1 tab(s) Oral Every 4 hours as needed for pain for 7 Days. Refills: 0.ibuprofen (ibuprofen 600 mg oral tablet) 1 tab(s) Oral Every 8 hours for 14 Days. Refills: 0.Visit InformationVisit Diagnosis:Diagnoses This Visit Knee contusion (S80.00XA) Olecranon fracture (S52.023A) Rib contusion (S20.219A) UC - Elbow Injury ([id number] 6C30EE) UC - Knee Pain or Swelling ([id number] 3C4A6E) UC - Rib/Trunk Pain or Swelling ([id number])If you received any narcotics, sedation, or any other medication that causes drowsiness for the next 24 hours, unless otherwise directed:? Do not drive a car.? Do not operate machinery such as power tools, lawn mowers, drills, sewing machines, or stoves? Avoid alcoholic beverages and drugs for allergies, nerves, or sleep? Do not make important personal or business decisions or sign any legal documentsReason for Visit:C/o left elbow swelling and pain, left rib aching and right knee swelling and aching.Allergies:Substance Reaction Symptoms Type CommentsNo Known Medication Allergies DrugVital Signs: Vitals and Measurements this Visit (last charted value for your 03/12/2018 visit) Vital Signs This Visit Temperature Oral: 36.5 DegC Peripheral Pulse Rate: 67 bpm Respiratory Rate: 20 br/min Systolic Blood Pressure: 176 mmHg Diastolic Blood Pressure: 102 mmHg SpO2: 98 % O2 Flow: 0 L/min Measurements This Visit Height: 180.3 cm Weight: 67.1 kg Body Mass Index: 20.64 kg/c8Doxwpyct List:Problem Onset CommentsNo Problems foundMajor Tests and Procedures:The following procedures and tests were performed during your ED visit.LaboratoryRadiologyCopy CD EO 03/12/18 12:20:00 EDT Routine, Home for follow up, Allow Modification Per Radiologist, Transport Mode: Walk, 03/12/18 12:20:00 EDTXR Elbow Complete Left 03/12/18 11:18:00 EDT Stat, fall, hematoma, Allow Modification Per Radiologist, Transport Mode: Cart, 03/12/18 11:18:00 EDTXR Knee Complete Right 03/12/18 11:18:00 EDT Stat, fall, Allow Modification Per Radiologist, Transport Mode: Cart, 03/12/18 11:18:00 EDTXR Ribs w/ PA Chest Left 03/12/18 11:18:00 EDT Stat, fall, Allow Modification Per Radiologist, Transport Mode: Cart, 03/12/18 11:18:00 EDTCardiology Viruses or BacteriaWhat?s got you sick?Antibiotics only treat bacterial infections. Viral illnesses cannot be treated with antibiotics. When an antibiotic is not prescribed, ask your healthcare professional for tips on how to relieve symptoms and feel better. Usual CauseIllnessVirusesBacteria Antibiotic NeededCold/Runny Nose NOBronchitis/Chest Cold (in otherwise healthy children and adults) NOWhooping Cough YesFlu NOStrep Throat YesSore Throat (except strep) NOFluid in the middle ear (otitis media with effusion) NOUrinary Tract Infection YesAntibiotics Aren?t Always the Answerwww.cdc.gov/getsmart GET SMART Know When Antibiotics Angela.. Department of Health and Human ServicesCenters for Disease Control and Prevention May 2014 Normal [facility] [address]18 Urgent Care Record [facility] ? Urgent [id number] [id number] pATIENT DISCHARGE INSTRUCTIONSPatient InformationName: SERGIO ALLEN Age: 78 YearsDate of : [birth year]MRN: [id number] For Visit: UC - Rib/Trunk Pain or Swelling; UC - Knee Pain or Swelling; UC - Elbow Injury; FALL, LEFT ELBOW PAIN/SWELLING, LEFT RIB PAINArrival Time: 03/12/18 11:07:00Phone: Primary Care Physician: Provider, NoneAttending Physician: Roz JeanComment:Visit Diagnosis:Diagnoses This Visit Knee contusion (S80.00XA) Olecranon fracture (S52.023A) Rib contusion (S20.219A) UC - Elbow Injury ([id number] 6C30EE) UC - Knee Pain or Swelling ([id number] 3C4A6E) UC - Rib/Trunk Pain or Swelling ([id number])If you received any narcotics, sedation, or any other medication that causes drowsiness for the next 24 hours, unless otherwise directed:? Do not drive a car.? Do not operate machinery such as power tools, lawn mowers, drills, sewing machines, or stoves? Avoid alcoholic beverages and drugs for allergies, nerves, or sleep? Do not make important personal or business decisions or sign any legal documentsWith: Address: When:Jairon Hall [address] [place] [address], [address] [place], [phone] Business (2) In 2 days 03/14/18With: Address: When:None ProviderMedication Information:The exam and treatment you received today in the [facility] were for an urgent problem and are not intended as complete care. It is important for you to follow up with a doctor, nurse practitioner, or physician?s public health training assistant for ongoing care. If your symptoms become worse or you do not improve as expected and you are unable to reach your usual health care provider, you should return to the Emergency Department, we are available 24 hours a day.For those patients who have received Radiology results, the interpretation of your X-ray as given to you by our Urgent Care physician is only a preliminary report. The Radiologist will review your films and if there is a change in the diagnosis you will be notified by phone. Please make sure you have provided a working phone number so we can reach you if necessary.In the event that you had a lab culture while you were a patient in the Urgent Care, you will be notified by phone if there is a need to change your antibiotic. Please make sure you have provided a working phone number so we can reach you if necessary.[facility] Urgent [facility] has provided you with a complete list of medications post discharge. Please inform your primary special educator/provider of your visit and for further instruction on these medications. Any specific questions regarding your chronic medications and dosages should be discussed with your primary care physician(s) and/or pharmacist. New MedicationsPrinted Prescriptionsacetaminophen-hydr ocodone (Luke 5 mg-325 mg oral tablet) 1 tab(s) Oral Every 4 hours as needed for pain for 7 Days. Refills: 0.ibuprofen (ibuprofen 600 mg oral tablet) 1 tab(s) Oral Every 8 hours for 14 Days. Refills: 0.Visit InformationAllergies:Substance Reaction Symptoms Type CommentsNo Known Medication Allergies DrugVital Signs: Vitals and Measurements this Visit (last charted value for your 03/12/2018 visit) Vital Signs This Visit Temperature Oral: 36.5 DegC Peripheral Pulse Rate: 67 bpm Respiratory Rate: 20 br/min Systolic Blood Pressure: 176 mmHg Diastolic Blood Pressure: 102 mmHg SpO2: 98 % O2 Flow: 0 L/min Measurements This Visit Height: 180.3 cm Weight: 67.1 kg Body Mass Index: 20.64 kg/p4Ybjffubn List:Problem Onset CommentsNo Problems found Patient EducationElbow Fracture Treated With ORIFAn elbow fracture is a break in a bone or bones of your elbow. Your elbow is a hinged joint that is made up of three bones. These bones are the long bone in your upper arm (humerus), the bone in the outer part of your lower arm (radius), and the bone in the inner part of your lower arm (ulna). The tip of your elbow (olecranon) is part of your ulna. If the fracture is displaced, that means that the bones are not lined up correctly and may be unstable. The bones will be put back into position with a procedure that is called open reduction with internal fixation (ORIF). A combination of metal pins, screws with or without a metal plate, or different types of wiring are used to hold the bones in place.Tell a health care provider about:? Any allergies you have.? All medicines you are taking, including vitamins, herbs, eye drops, creams, and wojf-xgv-fkwyoyq medicines.? Any problems you or family members have had with anesthetic medicines.? Any blood disorders you have.? Any surgeries you have had.? Any medical conditions you have.What are the risks?Generally, this is a safe procedure. However, problems may occur, including:? Bleeding.? Infection.? Elbow stiffness.? Nerve damage.? Blood vessel damage.? Loosening or breaking of the screws or plates that are used for internal fixation.? Failure of the fracture to heal properly.? Need to have surgery again.What happens before the procedure?? Ask your health care provider about:? Changing or stopping your regular medicines. This is especially important if you are taking diabetes medicines or blood thinners.? Taking medicines such as aspirin and ibuprofen. These medicines can thin your blood. Do not take these medicines before your procedure if your health care provider instructs you not to.? Do not drink alcohol before your procedure or as directed by your health care provider.? Do not use any tobacco products, including cigarettes, chewing tobacco, or e-cigarettes before the procedure or as directed by your health care provider. If you need help quitting, ask your health care provider. Using tobacco products can delay or prevent bone healing.? Follow instructions from your health care provider about eating or drinking restrictions.? Plan to have someone take you home after the procedure.? If you go home right after the procedure, plan to have someone with you for 24 hours.What happens during the procedure?? An IV tube will be inserted into one of your veins.? You will be given one or more of the following:? A medicine that helps you relax (sedative).? A medicine that makes you fall asleep (general anesthetic).? A medicine that is injected into an area of your body that numbs everything below the injection site (regional anesthetic).? Your arm will be cleaned with a germ-killing solution (antiseptic) and covered with sterile cloths.? Your surgeon will make an incision in your elbow over the fracture.? The structures around your elbow will be moved aside carefully to expose your fracture.? The bone pieces will be put back into their normal positions.? Your surgeon may use metal screws, wires, pins, or plates to hold the bone pieces in position.? After the bones are back in place, the incision will be closed with stitches (sutures) or js.? A bandage (dressing) will be placed over the incision.? A splint may be placed on your arm.The procedure may vary among health care providers and hospitals.What happens after the procedure?? Your blood pressure, heart rate, breathing rate, and blood oxygen level will be monitored often until the medicines you were given have worn off.? It is normal to have pain after the procedure. You will be given medicine for pain as needed.? You may be sent home with a sling to support your arm.This information is not intended to replace advice given to you by your health care provider. Make sure you discuss any questions you have with your health care provider.Document Released: 03/09/2002 Document Revised: 02/18/2017 Document Reviewed: 09/09/2015[employer] Interactive Patient Education ? 2018 [employer]Rib ContusionA rib contusion is a deep bruise on your rib area. Contusions are the result of a blunt trauma that causes bleeding and injury to the tissues under the skin. A rib contusion may involve bruising of the ribs and of the skin and muscles in the area. The skin overlying the contusion may turn blue, purple, or yellow. Minor injuries will give you a painless contusion, but more severe contusions may stay painful and swollen for a few weeks. What are the causes?A contusion is usually caused by a blow, trauma, or direct force to an area of the body. This often occurs while playing contact sports.What are the signs or symptoms?? Swelling and redness of the injured area.? Discoloration of the injured area.? Tenderness and soreness of the injured area.? Pain with or without movement.How is this diagnosed?The diagnosis can be made by taking a medical history and performing a physical exam. An X-ray, CT scan, or MRI may be needed to determine if there were any associated injuries, such as broken bones (fractures) or internal injuries.How is this treated?Often, the best treatment for a rib contusion is rest. Icing or applying cold compresses to the injured area may help reduce swelling and inflammation. Deep breathing exercises may be recommended to reduce the risk of partial lung collapse and pneumonia. Cxsg-oad-kwrxwbu or prescription medicines may also be recommended for pain control.Follow these instructions at home:? Apply ice to the injured area:? Put ice in a plastic bag.? Place a towel between your skin and the bag.? Leave the ice on for 20 minutes, 2?3 times per day.? Take medicines only as directed by your health care provider.? Rest the injured area. Avoid strenuous activity and any activities or movements that cause pain. Be careful during activities and avoid bumping the injured area.? Perform deep-breathing exercises as directed by your health care provider.? Do not lift anything that is heavier than 5 lb (2.3 kg) until your health care provider approves.? Do not use any tobacco products, including cigarettes, chewing tobacco, or electronic cigarettes. If you need help quitting, ask your health care provider.Contact a health care provider if:? You have increased bruising or swelling.? You have pain that is not controlled with treatment.? You have a fever.Get help right away if:? You have difficulty breathing or shortness of breath.? You develop a continual cough, or you cough up thick or bloody sputum.? You feel sick to your stomach (nauseous), you throw up (vomit), or you have abdominal pain.This information is not intended to replace advice given to you by your health care provider. Make sure you discuss any questions you have with your health care provider.Document Released: 06/08/2002 Document Revised: 02/18/2017 Document Reviewed: 06/25/2015[employer] Interactive Patient Education ? 2018 [employer]. Viruses or BacteriaWhat?s got you sick?Antibiotics only treat bacterial infections. Viral illnesses cannot be treated with antibiotics. When an antibiotic is not prescribed, ask your healthcare professional for tips on how to relieve symptoms and feel better. Usual CauseIllnessVirusesBacteria Antibiotic NeededCold/Runny Nose NOBronchitis/Chest Cold (in otherwise healthy children and adults) NOWhooping Cough YesFlu NOStrep Throat YesSore Throat (except strep) NOFluid in the middle ear (otitis media with effusion) NOUrinary Tract Infection YesAntibiotics Aren?t Always the Answerwww.cdc.gov/getsmart GET SMART Know When Antibiotics [place]. Department of Health and Human ServicesCenters for Disease Control and Prevention May 2014 [facility] XR Elbow Complete Lefton XR Elbow Complete Left ELBOW COMPLETE LEFT, RIBS WITH PA CHEST LEFT AND KNEE COMPLETE RIGHTCLINICAL DATA: Fell today, impact injury to left elbow, left chest wall andright knee, painFour views of the left elbow were obtained. There is a comminuted fractureof the olecranon region of the proximal ulna involving the joint space withthe major fracture line transversely oriented, there is significant up to 2cm separation of the major fracture fragments, there are a few smallerfracture fragments seen about the medial aspect of the major fracture site.No obvious humeral or radial fracture is suggested. No evidence ofdislocation. There is a mildly prominent anterior fat pad, no obviousposterior fat pad. There is moderate soft tissue swelling posteriorly withmild swelling otherwise suggested.Five views of the right knee were obtained. No definite acute fracture ordislocation is seen. There is mild joint space narrowing bilaterally. Thereis calcification of the joint space bilaterally, more so laterally comparedwith chondrocalcinosis related to degenerative change. There is mildpatellofemoral narrowing noted medially. There is minimal posterior patellarspurring. There is minimal anterior, superior patellar spur. There is mildosteopenia. There is moderate patellar soft tissue swelling. No evidence ofsizeable suprapatellar joint effusion.Left rib series was performed. No obvious displaced or deforming left ribfractures are seen, small undisplaced fractures may be difficult to identifyacutely. No significant pleural thickening or effusions are identified.PA view of the chest was obtained. Heart and mediastinal contours areunremarkable in appearance. No acute infiltrate or consolidations are seen.There is mild COPD. There is no obvious pneumothorax. There arepostoperative clips overlying the right lateral chest wall, correlate withthe history. There is slight convexity of the lower dorsal spine to the leftand mild convexity visualized upper lumbar spine to the right.IMPRESSION:1. LEFT ELBOW STUDY DEMONSTRATES A COMMINUTED FRACTURE OF THE OLECRANONREGION OF THE PROXIMAL ULNA DESCRIBED. SIGNIFICANT UP TO 2 CM SEPARATIONOF THE MAJOR FRACTURE FRAGMENTS.2. RIGHT KNEE STUDY DEMONSTRATES DEGENERATIVE CHANGES DESCRIBED. NODEFINITE ACUTE FRACTURE OR DISLOCATION.3. LEFT RIB SERIES FAILS TO DEMONSTRATE DEFINITE EVIDENCE OF DISPLACED ORDEFORMING FRACTURE.4. COPD. NO ACUTE PROCESS SEEN IN THE CHEST.5. FOLLOW-UP NEEDED.Aman Do MDJOB #: [id number]: 03/13/2018T: 03/13/2018 Final Dictated by: Aman Do MD SDictated DT/TM: 03/13/18 7:33Signed (Electronic Signature): Aman Do MD 03/13/18 10:47 aTechnologist: Shawna WEINER [facility] Encounters Encounter Date Encounter Type Care Provider Facility Start: 05-15-2022 Telephone encounter Jose Raul de jesus DO Work Phone: Colorectal Surgery Comment on above: [facility] Start: 03-19-2018 End: 03-19-2018 Emergency department patient visit None Provider Facility:[facility] Start: 03-18-2018 End: 03-18-2018 Patient encounter [facility] Facility:[facility] Start: 03-16-2018 End: 03-16-2018 Patient encounter [facility] Facility:[facility] Start: 03-12-2018 End: 03-17-2018 Patient encounter Roz Terry Facility:[facility] Plan of Treatment Date Care Activity Detail Author Start: 05-28-2022 Influenza vaccination INFLUENZA (#1) [facility] Start: 09-27-2021 ADVANCE DIRECTIVE DISCUSSION ADVANCE DIRECTIVE DISCUSSION [facility] Start: 08-06-2019 DIABETES SCREEN DIABETES SCREEN [facility] Start: 2003 BONE DENSITY BONE DENSITY [facility] Start: 2003 PNEUMOCOCCAL: 65+ (1 - PCV) PNEUMOCOCCAL: 65+ (1 - PCV) [facility] Start: 01-26-1988 SHINGRIX VACCINE (1 of 2) ORELLANA GRIX VACCINE (1 of 2) [facility] Start: 1957 Urine microalbumin profile DTAP,TDAP ,TD (1 - Tdap) [facility] Start: 1938 COVID-19 VACCINE (#1) COVID-19 VACCI NE (#1) [facility] Payers Date Payer Category Payer Medicare [id number] 2015 Private Health Insurance [facility] AARP SUPPLEMENT [id number] 2015-Present [phone] [address] [place] [address] Indemnity [id number] 2002 Medicare MEDICARE MEDICAR E A AND B [id number] 2002-Present [phone] [address] [address] [place] [address] Medicare [id number] Social History Date Type Detail Facility Start: 06-19-2021 Tobacco smoking stat us CAIS Never smoked tobacco [facility] Start: 06-19-2021 Tobacco use and exposure Smoke less tobacco non-user [facility] Start: 06-19-2021 Alcohol intake Current drinke r of alcohol (finding) [facility] Start: 05-28-2016 History SDOH Alcohol Comment 3 drinks a night [facility] Start: 1940 Sex Assigned At Not on file C [facility] Medical Equipment Procedure Code Equipment Code Equipment Origin al Text Equipment Identifier Dates Neurostimulator Interstim Ii 10-14hz 0-4v Thk.3in 2inx1.7in Implantable 4 - [id number] Start: 08-27-2016 Stimulator Micro stim Plus Ball Nerve Led Instruction Manual Electrode - [id number] Start: 08-14-2016 Comment on above: Description: medtronic interstim qquadri polar lead kit for sacral nerve stimulation Model # 3889 Note 05-15-2022 Telephone Encounter - Chandu Rosen RN - 05/15/2022 2:09 PM EDT Note Date & Type Note Facility 05-15-2022 Miscellaneous Notes Formattin g of this note might be different from the original. SPECIALTY CARE COORDINATION FOLLOW-UP NOTE Unable to reach Sergio. Left a voice message to call the office back [phone] or call [phone] to make an appointment with Rema Silvestre NP as an office visit to discuss the sacral nerve stimulator. Signature Chandu Rosen RN May 15, 2022 documented in this encounter [facility] Summary Purpose Family History No Family History Records FoundNo Family History Records Found Advance Directives No Advanced Directives Records FoundNo Advanced Directives Records Found Additional Source Comments INFORMATION SOURCE (unrecogn ized section and content) DATE CREATED AUTHOR 04/19/2018 [facility] DATE CREATED AUTHOR AUTHOR'S ORGANIZ ATION 05/21/2022 [facility] Source Comments (unrecognize d section and content) In the event this informatio n is protected by the Federal Confidentiality of Alcohol and Drug Abuse Patient Records regulations: The Federal rules restrict any use of the information to criminally investigate or prosecute any alcohol or drug abuse patient.[facility] Reason for Visit (unrecogniz ed section and content) 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 This clinical summary was aggregated from multiple sources. Caution should be exercised in using it in the provision of clinical care. This summary normalizes information from multiple sources, and as a consequence, information in this document may materially change the coding, format and clinical context of patient data. In addition, data may be omitted in some cases. CLINICAL DECISIONS SHOULD BE BASED ON THE PRIMARY CLINICAL RECORDS. [facility] [employer] [facility]. provides no warranty or guarantee of the accuracy or completeness of information in this document.
== END 2024-05-04 10:50 | disposition home or self-care (01) ==
LOC: EC 10:49
PROVIDERS: Visit Provider Physician Assistant
DX: M25.572 Pain in left ankle and joints of left foot (principal)
CPT/HCPCS: 73610; 73630